=== PATIENT | male | born 1930 | race Caucasian/White ===

== ENCOUNTER → 2016-08-18 12:59 | Outpatient (CLI) | payer MEDICARE, BC ==
[2010-06-09 10:18] VITALS: BMI 25.0
== END | disposition home or self-care (01) ==
LOC: D.US 12:59
DX: I80.8 Phlebitis and thrombophlebitis of other sites (principal)

== ENCOUNTER → 2017-01-03 11:04 | Outpatient (CLI) | payer MEDICARE, BC ==
[2010-06-09 10:18] VITALS: BMI 25.0
== END | disposition home or self-care (01) ==
LOC: D.RAD 11:04
DX: M54.5 Low back pain (principal)

== ENCOUNTER 2017-10-21 09:41 | Inpatient (IN) | payer MEDICARE, BC ==
[~2017-10-21] VITALS: Ht 170.2 cm; Wt 71.8 kg
--- NOTE | ~2017-10-21 | HEMODYNAMI ---
PATIENT:AMITA MICHELE MEDICAL RECORD: [id number] : 32 LOCATION:[facility] D.2102 ADMISSION DATE: 10/22/17 Generatedon:10/24/201710:35 Patient name: AMITA MICHELE Patient #: [id number] SSN: : 1930 Date of study: 10/24/2017 Page: Of Hemodynamic Procedure Report Patient Data Patient Demographics Procedure consent was obtained First Name: AMITA Gender: Male Last Name: LENY : 1930 Patient #: [id number] Age: 87 year(s) Race: Additional ID: [id number] Contact details Address: [address] [place] [address] State: [place] City: [facility] Zip code: [address] Admission Admission Data Admission Date: 10/22/2017 Admission Time: 15:45 Room #: D.2102 Procedure Procedure Types Cath Procedure Diagnostic Procedure LHC LHC w/Coronaries Sedation Charges Moderate Sedation up to 15 minutes Peripheral Cath Diagnostic Procedure Cath Peripheral Four Vessel Arteriogram Procedure Description Procedure Date Procedure Date: 10/24/2017 Procedure Start Time: 10:08 Procedure End Time: 10:30 Procedure Staff Name Function Christoph Bronson MD Performing Physician Rosina Balderrama RT Monitor Sarbjit Garcia RN Nurse Kimi Bailon RT Scrub Procedure Data Cath Procedure Fluoroscopy Diagnostic fluoroscopy Total fluoroscopy Time: 2 time: 2 min min Diagnostic fluoroscopy Total fluoroscopy dose: 372 dose: 372 mGy mGy Contrast Material Contrast Material Type Amount (ml) Isovue 300 70 Entry Location Entry Primary Successful Side Size Upsize Upsize Entry Closure Succes sful Closure Location (Fr) 1 (Fr) 2 (Fr) Remarks Device Remarks Femoral Right 5 Fr Exoseal artery Estimated blood loss: 5 ml Diagnostic catheters Device Type Used For End Catheter Placement MULTIPACK JL 4.0 5Fr Left Coronary catheter Angiography MULTIPACK 3DRC 5Fr Right Coronary catheter Angiography MULTIPACK Pigtail 5 Fr LV Angiography catheter Procedure Complications No complications Procedure Medications Medication Administration Route Dosage Oxygen NC 2 l/min Zofran I.V. 4 mg Lidocaine 2% added to field 20 Heparin Flush Bag added to field 2 bags (1000units/500ml NS) 0.9% NaCl I.V. 100 ml/hr Versed I.V. 1 mg Fentanyl I.V. 25 mcg Hemodynamics Rest Heart Rate: 65 (bpm) Pressure Samples Time Site Value (mmHg) Purpose Heart Use Rate(bpm) 10:24 LV 143/-9,11 EDP 64 10:24 LV 140/-10,11 Snapshot 62 10:25 AO 125/69(93) Pullback 62 10:25 LV 110/11,18 Pullback 62 Gradients Valve Time Site 1 Site 2 Mean SEP/DFP Peak To Heart Use (mmHg) (sec/min) Peak Rate (mmHg) (bpm) Aortic 10:25 LV AO 0 62 110/11,18 125/69(93) Calculations Valve P-P Mean Valve Index Valve Source Name Gradient Area Flow (cm2) Aortic 0 0 Snapshots Pre Cath Intra NCS Post Cath Vital Signs Time Heart Resp SPO2 etCO2 NIBP (mmHg) Rhythm Pain Sedation Rate (ipm) (%) (mmHg) Status Level (bpm) 9:59:12 68 14 98 27.5 138/84(105) NSR 0 (11) 10(A) , No pain 10:03:28 68 15 98 23.8 129/93(108) NSR 0 (11) 10(A) , No pain 10:07:41 66 13 98 23 139/91(116) NSR 0 (11) 10(A) , No pain 10:11:54 65 14 96 24.2 117/70(86) NSR 0 (11) 10(A) , No pain 10:16:06 62 16 95 23.1 104/71(86) NSR 0 (11) 9(A) , No pain 10:20:29 63 14 93 24.5 113/75(89) NSR 0 (11) 9(A) , No pain 10:24:40 62 15 94 23.7 120/65(83) NSR 0 (11) 9(A) , No pain 10:28:52 64 14 94 24 114/71(84) NSR 0 (11) 10(A) , No pain Medications Time Medication Route Dose Verified Delivered Reason Notes Effe ctiveness by by 9:38:24 Oxygen NC 2 Christoph Buffie used for l/min Aiyana Garcia RN procedure MD 9:38:32 Zofran I.V. 4 mg Christoph Buffie Per Aiyana Garcia RN physician 9:38:43 Lidocaine 2% added 20ml Christoph Christoph for local to vial Aiyana Bronson MD anesthetic field 9:38:51 Heparin Flush added 2 Christoph Christoph used for Bag to bags Aiyana Bronson MD procedure (1000units/500ml field NS) 9:39:00 0.9% NaCl I.V. 100 Christoph Buffie Per ml/hr Aiyana Garcia RN physician 10:08:19 Versed I.V. 1 mg Christoph Buffie for Aiyana Garcia RN sedation 10:08:24 Fentanyl I.V. 25 Christoph Buffie for mcg Aiyana Garcia RN sedation Procedure Log Time Note 9:25:03 Rosina Balderrama RT(R) sent for patient. Start room use. 9:36:09 Informed consent obtained and on chart 9:36:13 Diagnostic Cath Status : Elective 9:37:09 Time tracking: Regular hours (M-F 7:00 - 5:00) 9:37:12 Plan of Care:Hemodynamics will remain stable., Cardiac rhythm will remain stable., Comfort level will be maintained., Respiratory function will remain adequate., Patient/ family verbilizes understanding of procedure., Procedure tolerated without complication., Recovers from procedure without complications.. 9:37:17 Patient received from Med II to CCL 2 Alert and oriented. Tansferred to table in Supine position. 9:37:18 Warm blankets applied, and criselda hugger turned on for patient comfort. 9:37:18 Correct patient and procedure confirmed by team. 9:37:19 ECG and BP/O2 sat monitors applied to patient. 9:37:20 Vital chart was started 9:37:21 Baseline sample Acquired. 9:37:24 Rhythm: sinus rhythm 9:37:25 Full Disclosure recording started 9:37:28 H&P Date Dictated: 10/24/2017 New H&P dictated by physician.. 9:37:30 Pre-procedure instructions explained to patient. 9:37:30 Pre-op teaching completed and patient verbalized understanding. 9:37:34 Family unavailable. 9:37:35 Patient NPO since Midnight. 9:37:37 Is the patient allergic to Iodine/contrast media? Yes. 9:37:38 Was the patient premedicated? Yes 9:37:39 Is patient on blood thinner?Yes 9:37:41 ACC The patient was administered the following blood thiners within the last 24 hours: ACCPlavix 9:38:24 Oxygen 2 l/min NC was administered by Sarbjit Garcia RN; used for procedure; 9:38:32 Zofran 4 mg I.V. was administered by Sarbjit Garcia RN; Per physician; 9:38:43 Lidocaine 2% 20ml vial added to field was administered by Christoph Bronson MD; for local anesthetic; 9:38:51 Heparin Flush Bag (1000units/500ml NS) 2 bags added to field was administered by Christpoh Bronson MD; used for procedure; 9:39:00 0.9% NaCl 100 ml/hr I.V. was administered by Sarbjit Garcia RN; Per physician; 9:40:00 Patient diabetic? No. 9:40:06 Previous problem with sedation/anesthesia? Yes nausea 9:40:08 Snore? Yes 9:40:09 Sleep apnea? No 9:40:10 Deviated septum? No 9:40:12 Opens mouth fully? Yes 9:40:13 Sticks out tongue? Yes 9:40:14 Airway obstruction? No ? 9:40:17 Dentures? No ? 9:40:21 Pre procedure: right dorsailis pedis pulse 1+ Palpable, but thready & weak; easily obliterated 9:40:23 Pre procedure: left dorsailis pedis pulse 1+ Palpable, but thready & weak; easily obliterated 9:40:26 Patient pain scale 0/10 ?. 9:41:23 IV patent on arrival in left forearm with 0.9% NaCl at [facility]. 9:41:29 Lab results completed and on chart. 9:41:33 Right groin area was prepped with chlora-prep and draped in sterile fashion 9:41:34 Alarms reviewed by RYana N. 9:41:35 Sharps counted by scrub and verified by R.N. 9:55:44 Zero performed for pressure channel P1 10:07:07 Physician arrived 10:07:07 --------ALL STOP TIME OUT------ 10:07:08 Final Timeout: patient, procedure, and site verified with staff and physician. All members of the team are in agreement. 10:07:17 Right groin site verified by team. 10:07:19 Physical assessment completed. ASA score P 2 - A patient with mild systemic disease as per Christoph Bronson MD. 10:07:23 Sedation plan: IV Moderate Sedation Medication:Versed, Fentanyl 10:07:30 Use device set Femoral Dx 10:07:31 ACIST Syringe (15071) opened to sterile field. 10:07:31 Bag Decanter (2002S) opened to sterile field. 10:07:32 Medline Cath Pack ([id number]) opened to sterile field. 10:07:33 DIAGNOSTIC WIRE .035 260cm J wire (222161) opened to sterile field. 10:07:34 ACIST Hand Control (66183) opened to sterile field. 10:07:34 ACIST Manifold (30664) opened to sterile field. 10:07:35 DIAGNOSTIC Multipack 5Fr catheter set ([id number]) opened to sterile field. 10:07:35 Tegaderm 4 x 4 (1626W) opened to sterile field. 10:07:37 MICROPUNCTURE 4FR Cook ([id number]) opened to sterile field. 10:07:39 SHEATH Prelude 5Fr 0.035 (HDE-5R-23-035) opened to sterile field. 10:08:19 Versed 1 mg I.V. was administered by Sarbjit Garcia RN; for sedation; 10:08:24 Fentanyl 25 mcg I.V. was administered by Sarbjit Garcia RN; for sedation; 10:08:45 Procedure started. 10:08:49 Local anesthetic to right femoral artery with Lidocaine 2% by Christoph Bronson MD.INITIAL ACCESS ONLY 10:08:50 Access obtained with 4Fr micropunture. 10:09:34 A 5 Fr sheath was inserted into the Right Femoral artery 10:10:40 A MULTIPACK JL 4.0 5Fr catheter was advanced over the wire and used for Left Coronary Angiography. 10:12:32 LCA angiography performed. 10:12:37 Injector settings: Ml/sec: 3, Volume: 6, 10:13:31 Catheter removed. 10:13:38 A MULTIPACK 3DRC 5Fr catheter was advanced over the wire and used for Right Coronary Angiography. 10:14:45 RCA angiography performed. 10:14:48 Injector settings: Ml/sec: 3, Volume: 6, 10:15:17 Bilateral carotid angiography performed. 10:17:29 Bilateral subclavian angiography performed 10:23:33 Catheter removed. 10:24:05 A MULTIPACK Pigtail 5 Fr catheter was advanced over the wire and used for LV Angiography. 10:24:48 LV hemodynamics recorded. 10:24:50 LV gram done using BRAXTON 10:24:53 Injector settings: Ml/sec: 5, Volume: 15, 10:25:28 EF : 60 % 10:26:07 Catheter removed. 10:28:54 EXOSEAL 5Fr (EX500) opened to sterile field. 10:29:03 Sheath removed intact; hemostasis achieved with Exoseal to the Right Femoral artery. 10:29:04 Procedure ended.(Physican Out) 10:29:15 Fluoroscopy time 02.00 minutes. 10:29:19 Fluoroscopy dose: 372 mGy 10:29:19 Flurop Dose total: 372 10:29:34 Contrast amount:Isovue 300 70ml. 10:29:36 Sharps counted by scrub and verified by R.N. 10:29:37 Insertion/operative site no bleeding no hematoma. 10:29:40 Post-op/insertion site Right Femoral artery dressed using a 4 x 4 and Tegaderm. 10:29:43 Post right femoral artery:stable 10:29:44 Post Procedure Pulses reassessed and unchanged 10:29:47 Post procedure rhythm: unchanged. 10:29:50 Estimated blood loss: 5 ml 10:29:52 Post procedure instruction explained to patient.Patient verbalizes understanding. 10:29:52 Patient needs reinforcement of post procedure teaching. 10:30:09 Procedure type changed to Cath procedure, Diagnostic procedure, LHC, LHC w/Coronaries, Sedation Charges, Moderate Sedation up to 15 minutes, Peripheral Cath Diagnostic Procedure, Cath Peripheral, Four Vessel Arteriogram 10:30:10 Procedure and supply charges have been captured, reviewed, submitted and are correct. 10:30:16 Procedure Complication : No complications 10:30:18 Vital chart was stopped 10:30:23 See physician's report for complete and final results. 10:30:33 Report given to [facility] II. 10:30:36 Patient transfered to [facility] with Stretcher. 10:30:38 Procedure ended. 10:30:38 Full Disclosure recording stopped 10:30:44 End room use (Document Last) Device Usage Item Name Manufacture Quantity Catalog Number Hospital Part Current M inimal Lot# / Charge Number Stock Stock Serial# Code ACIST Syringe Acist 1 24222 850168 908137 [id number] 2 0 (71401) [employer] Bag Decanter Microtek 1 2001S 435554 33829 185004 5 (2001S) Medical Inc. Medline Cath Cardinal 1 [id number] 408933 29251 404320 5 Pack Health ([id number]) DIAGNOSTIC WIRE [facility] Theodore 1 839244 865841 340083 148882 3 0 .035 260cm J wire (890037) ACIST Hand Acist 1 92588 057898 463324 898942 5 Control (97452) [employer] ACIST Manifold Acist 1 39825 497597 664382 797166 5 (37763) [employer] DIAGNOSTIC Cardinal 1 [id number] 913562 71270 387866 3 0 Multipack 5Fr Health catheter set ([id number]) Tegaderm 4 x 4 3M 1 1626W 883360 555690 985633 5 (1626W) MICROPUNCTURE Cook Medical 1 R35025 072382 964329 443964 5 4FR Cook ([id number]) SHEATH Prelude Merit 1 FND-2F-10-035 098465 312603 073551 5 5Fr 0.035 Medical (GOS-1N-25-035) MULTIPACK JL Cardinal 1 [id number] 5 4.0 5Fr Health catheter MULTIPACK 3DRC Cardinal 1 [id number] 5 5Fr catheter Health MULTIPACK Cardinal 1 [id number] 5 Pigtail 5 Fr Health catheter EXOSEAL 5Fr Cardinal 1 EX500 996983 929147 696086 1 0 (EX500) Health Signature Audit [place] Stage Time Signature Unsigned Intra-Procedure 10/24/2017 Rosina Balderrama 10:35:10 AM RT(R) Signatures Monitor : Rosina Balderrama RT Signature : Date : Time : [address] [address]
--- NOTE | ~2017-10-21 | HEMODYNAMI ---
PATIENT:AMITA MICHELE MEDICAL RECORD: [id number] : 32 LOCATION:[facility] D.2102 ADMISSION DATE: 10/22/17 Generatedon:10/25/20179:49 Patient name: AMITA MICHELE Patient #: [id number] SSN: : 1930 Date of study: 10/25/2017 Page: Of Hemodynamic Procedure Report Patient Data Patient Demographics First Name: AMITA Gender: Male Last Name: LENY : 1930 Patient #: [id number] Age: 87 year(s) Race: Additional ID: [id number] Contact details Address: [address] [place] [address] State: [place] City: [facility] Zip code: [address] Past Medical History Allergies Allergen Reaction Date Comments Reported Other allergy 10/25/2017 shellfish Admission Admission Data Admission Date: 10/22/2017 Admission Time: 15:45 Room #: 2102 Procedure Procedure Types Cath Procedure Diagnostic Procedure Sedation Charges Moderate Sedation up to 15 minutes Moderate Sedation up to 30 minutes PCI Procedure Coronary Stent Coronary Stent Initial Procedure Description Procedure Date Procedure Date: 10/25/2017 Procedure Start Time: 9:09 Procedure End Time: 9:46 Procedure Staff Name Function Christoph Deleon MD Performing Physician Rosina Balderrama RT Monitor Sarbjit Garcia RN Nurse Kimi Bailon RT Scrub Procedure Data Cath Procedure Fluoroscopy Diagnostic fluoroscopy Total fluoroscopy Time: time: 10.8 min 10.8 min Diagnostic fluoroscopy Total fluoroscopy dose: dose: 1617 mGy 1617 mGy Contrast Material Contrast Material Type Amount (ml) Isovue 300 115 Entry Location Entry Primary Successful Side Size Upsize Upsize Entry Closure Carrillo ccessful Closure Location (Fr) 1 (Fr) 2 (Fr) Remarks Device Remarks Radial Right 6 Fr Mechanical TR Band artery Short Compression Estimated blood loss: 10 ml Procedure Complications No complications Procedure Medications Medication Administration Route Dosage Oxygen NC 2 l/min Plavix P.O. 300 mg Pepcid I.V. 20 mg Benadryl I.V. 50 mg Solumedrol I.V. 125 mg Radial Cocktail I.A. 1 syringe (Verapomil 2mg/Nitro 400mcg/Heparin 1500units) Lidocaine 2% added to field 20 Heparin Flush Bag added to field 2 bags (1000units/500ml NS) 0.9% NaCl I.V. 100 ml/hr Versed I.V. 1 mg Fentanyl I.V. 25 mcg Heparin Bolus I.V. 5000 units Versed I.V. 1 mg Fentanyl I.V. 25 mcg Nitroglycerin IC/IA I.C. 300 mcg Nitroglycerin IC/IA I.C. 300 mcg Heparin Bolus I.V. 2000 units Hemodynamics Rest Pre Cath Intra NCS Post Cath Vital Signs Time Heart Resp SPO2 etCO2 NIBP (mmHg) Rhythm Pain Sedation Rate (ipm) (%) (mmHg) Status Level (bpm) 9:07:35 71 12 99 0 126/85(99) NSR 0 (11) 10(A) , No pain 9:13:09 71 14 97 27 129/79(101) NSR 0 (11) 10(A) , No pain 9:17:17 75 16 96 26.8 123/79(99) NSR 0 (11) 9(A) , No pain 9:21:23 70 13 96 24.7 120/79(96) NSR 0 (11) 9(A) , No pain 9:25:26 73 14 97 26.1 133/80(98) NSR 0 (11) 9(A) , No pain 9:29:34 73 12 98 26.8 134/84(102) NSR 0 (11) 9(A) , No pain 9:33:44 72 14 96 24.5 126/75(92) NSR 0 (11) 9(A) , No pain 9:37:52 67 14 95 23.4 108/76(89) NSR 0 (11) 9(A) , No pain 9:41:52 69 15 97 0 123/78(91) NSR 0 (11) 9(A) , No pain 9:45:57 69 16 98 25.8 133/82(99) NSR 0 (11) 10(A) , No pain Medications Time Medication Route Dose Verified Delivered Reason Notes Effectiveness by by 8:55:35 Oxygen NC 2 l/min Christoph Buffie used for Norred Garcia community leader 8:57:42 Plavix P.O. 300 mg Christoph Buffie used for Aiyana Garcia community leader 9:02:17 Pepcid I.V. 20 mg Christoph Buffie used for Aiyana Garcia community leader 9:04:03 Benadryl I.V. 50 mg Christoph Buffie used for Aiyana Garcia community leader 9:05:45 Solumedrol I.V. 125 mg Christoph Buffie used for Aiyana Garcia community leader 9:09:12 Lidocaine 2% added 20ml Christoph Christoph for local to vial Aiyana Deleon MD anesthetic field 9:09:27 Heparin Flush added 2 bags Christoph Christoph used for Bag to Aiyana Deleon MD procedure (1000units/500ml field NS) 9:09:41 0.9% NaCl I.V. 100 Christoph Buffie Per physician ml/hr Aiyana Garcia RN, MD 9:09:48 Versed I.V. 1 mg Christoph Buffie for sedation Aiyana Garcia RN, MD 9:09:57 Fentanyl I.V. 25 mcg Christoph Buffie for sedation Aiyana Garcia RN, MD 9:13:22 Radial Cocktail I.A. 1 Christoph Christoph for (Verapomil syringe Aiyana Deleon MD vasodilation 2mg/Nitro 400mcg/Heparin 1500units) 9:15:42 Heparin Bolus I.V. 5000 Christoph Buffie for verif ied units Aiyana Garcia RN anticoagulation with dr MD deleon 9:29:17 Versed I.V. 1 mg Christoph Buffie for sedation Aiyana Garcia RN, MD 9:29:21 Fentanyl I.V. 25 mcg Christoph Buffie for sedation Aiyana Garcia RN, MD 9:31:27 Nitroglycerin I.C. 300 mcg Christoph Buffie for IC/IA Aiyana Garcia RN vasodilation 9:33:47 Nitroglycerin I.C. 300 mcg Christoph Buffie for IC/IA Aiyana Garcia RN vasodilation 9:37:08 Heparin Bolus I.V. 2000 Christoph Buffie for verif ied units Aiyana Garcia RN anticoagulation with dr MD deleon Procedure Log Time Note 8:42:29 Diagnostic Cath status Elective 8:42:31 Rosina Balderrama RT(R) sent for patient. Start room use. 8:42:33 Time tracking: Regular hours (M-F 7:00 - 5:00) 8:42:46 Plan of Care:Hemodynamics will remain stable., Cardiac rhythm will remain stable., Comfort level will be maintained., Respiratory function will remain adequate., Patient/ family verbilizes understanding of procedure., Procedure tolerated without complication., Recovers from procedure without complications.. 8:42:52 Patient received from Med II to CCL 2 Alert and oriented. Tansferred to table in Supine position. 8:43:02 H&P Date Dictated: 10/24/2017 Within 30 days and on chart.. 8:43:04 Pre-procedure instructions explained to patient. 8:43:11 Family in patients room. 8:43:14 Patient NPO since Midnight. 8:43:35 Patient allergic to Other allergyshellfish 8:43:38 Is the patient allergic to Iodine/contrast media? No. 8:43:40 Was the patient premedicated? Yes 8:55:35 Oxygen 2 l/min NC was administered by Sarbjit Garcia RN; used for procedure; 8:57:42 Plavix 300 mg P.O. was administered by Sarbjit Garcia RN; used for procedure; 9:02:17 Pepcid 20 mg I.V. was administered by Sarbjit Garcia RN; used for procedure; 9:04:03 Benadryl 50 mg I.V. was administered by Sarbjit Garcia RN; used for procedure; 9:05:45 Solumedrol 125 mg I.V. was administered by Sarbjit Garcia RN; used for procedure; 9:08:09 Is patient on blood thinner?Yes 9:08:12 ACC The patient was administered the following blood thiners within the last 24 hours: ACCPlavix 9:08:17 Patient diabetic? No. 9:08:26 Previous problem with sedation/anesthesia? Yes Nausea 9:08:28 Snore? Yes 9:08:33 Sleep apnea? No 9:08:37 Dentures? No ? 9:08:56 IV patent on arrival in right hand with 0.9% NaCl at KVO. 9:09:06 IV started by Sarbjit Garcia RN inleft forearm with a 22 gauge IV catheter with 0.9% NaCl at KVO. 9:09:11 Lab results completed and on chart. 9:09:12 Lidocaine 2% 20ml vial added to field was administered by Christoph Deleon MD; for local anesthetic; 9:09:15 Right Radial & Right Groin area was prepped with chlora-prep and draped in sterile fashion 9:09:16 Alarms reviewed by R. N. 9:09:16 Sharps counted by scrub and verified by R.N. 9::17 Physician paged 9::18 Physician arrived 9::18 --------ALL STOP TIME OUT------ 9::19 Final Timeout: patient, procedure, and site verified with staff and physician. All members of the team are in agreement. 9::26 Right Radial & Right Groin site verified by team. 9::27 Heparin Flush Bag (1000units/500ml NS) 2 bags added to field was administered by Christoph Deleon MD; used for procedure; 9::30 Physical assessment completed. ASA score P 2 - A patient with mild systemic disease as per Christoph Deleon MD. 9:09:34 Sedation plan: IV Moderate Sedation Medication:Versed, Fentanyl 9:09:41 0.9% NaCl 100 ml/hr I.V. was administered by Sarbjit Garcia RN; Per physician; 9::48 Versed 1 mg I.V. was administered by Sarbjit Garcia RN; for sedation; 9::48 Procedure started. 9:09:48 Full Disclosure recording started 9:09:57 Fentanyl 25 mcg I.V. was administered by Sarbjit Garcia RN; for sedation; 9:09:59 Local anesthetic to right radial artery with Lidocaine 2% by Christoph Deleon MD.INITIAL ACCESS ONLY 9:10:04 Use device set Femoral Dx 9:10:05 ACIST Syringe (11622) opened to sterile field. 9:10:06 Bag Decanter () opened to sterile field. 9:10:07 Medline Cath Pack ([id number]) opened to sterile field. 9:10:09 DIAGNOSTIC WIRE .035 260cm J wire (722371) opened to sterile field. 9:10:10 ACIST Hand Control (08733) opened to sterile field. 9:10:11 ACIST Manifold (58409) opened to sterile field. 9:10:28 SHEATH 6Fr Prelude Radial ([id number]) opened to sterile field. 9:10:37 Vital chart was started 9:11:50 INFLATOR Merit BasixCompak (LR1727) opened to sterile field. 9:12:53 A 6 Fr Short sheath was inserted into the Right Radial artery 9:13:22 Radial Cocktail (Verapomil 2mg/Nitro 400mcg/Heparin 1500units) 1 syringe I.A. was administered by Christoph Dleeon MD; for vasodilation; 9:13:22 Zero performed for pressure channel P1 9:14:26 GUIDE 6FR EBU 3.5 catheter ([id number]) opened to sterile field. 9:14:39 COPILOT Valve Control (6162870) opened to sterile field. 9:15:02 6 Fr EBU 3.5 guide catheter was inserted over the wire 9:15:42 Heparin Bolus 5000 units I.V. was administered by Sarbjit Garcia RN; for anticoagulation; verified with dr deleon 9:16:34 BMW 190cm [place] 2 J wire ([id number]) opened to sterile field. 9:16:41 BMW wire advanced. 9:27:08 WHISPER 190cm wire ([id number]) opened to sterile field. 9:27:09 Whisper wire advanced. 9:27:29 unable to cross lesion with the BMW Double wired with Whisper. WHisper removed BMW left down LAD 9:29:17 Versed 1 mg I.V. was administered by Sarbjit Garcia RN; for sedation; 9:29:21 Fentanyl 25 mcg I.V. was administered by Sarbjit Garcia RN; for sedation; 9:31:27 Nitroglycerin IC/IA 300 mcg I.C. was administered by Sarbjit Garcia RN; for vasodilation; 9:33:47 Nitroglycerin IC/IA 300 mcg I.C. was administered by Sarbjit Garcia RN; for vasodilation; 9:35:45 Wire advanced across lesion. 9:36:57 Place stent Inflation Number: 1 A JEAN-PIERRE RX 2.0 x 26 stent ([id number]) was prepped and advanced across the Mid LAD. The stent was deployed at 12 DEVANTE for 0:14 (min:sec). 9:37:08 Heparin Bolus 2000 units I.V. was administered by Buffie Garcia RN; for anticoagulation; verified with dr deleon 9:37:16 Stent catheter was removed intact over wire. 9:41:14 Place stent Inflation Number: 1 A JEAN-PIERRE RX 2.0 x 30 stent ([id number]) was prepped and advanced across the Prox LAD. The stent was deployed at 15 DEVANTE for 0:15 (min:sec). 9:43:14 TR BAND Standard ([id number]) opened to sterile field. 9:43:32 Stent catheter was removed intact over wire. 9:43:33 Wire removed. 9:43:34 Guide catheter removed. 9:44:05 Sheath removed intact; hemostasis achieved with Mechanical Compression to the Right Radial artery. 9:44:07 Procedure ended.(Physican Out) 9:44:21 Fluoroscopy time 10.80 minutes. 9:44:26 Fluoroscopy dose: 1617 mGy 9:44:26 Flurop Dose total: 1617 9:44:31 Contrast amount:Isovue 300 115ml. 9:44:32 Sharps counted by scrub and verified by R.N. 9:44:36 TR band inflated with 10cc of air. 9:44:38 Insertion/operative site no bleeding no hematoma. 9:44:44 Post left radial artery:stable 9:44:47 Post Procedure Pulses reassessed and unchanged 9:44:53 Post-procedure physical assessment completed. ASA score P 2 - A patient with mild systemic disease as per Christoph Deleon MD. 9:44:56 Post procedure rhythm: unchanged. 9:45:00 Estimated blood loss: 10 ml 9:45:03 Post procedure instruction explained to patient.Patient verbalizes understanding. 9:45:33 Procedure type changed to Cath procedure, Diagnostic procedure, Sedation Charges, Moderate Sedation up to 15 minutes, Moderate Sedation up to 30 minutes, PCI procedure, Coronary Stent, Coronary Stent Initial 9:45:35 Procedure and supply charges have been captured, reviewed, submitted and are correct. 9:46:11 Procedure Complication : No complications 9:46:14 Vital chart was stopped 9:46:14 See physician's report for complete and final results. 9:46:18 Report given to Med II. 9:46:21 Patient transfered to Med II with Bed. 9:46:24 Procedure ended. 9:46:24 Full Disclosure recording stopped 9:46:27 End room use (Document Last) Intervention Summary Intervention Notes Time ActionType Lesion and Equipment Used Action# Pressure Duration Attributes 9:36:57 Place stent Mid LAD JEAN-PIERRE RX 2.0 x 1 12 00:14 26 stent ([id number]) 9:41:14 Place stent Prox LAD JEAN-PIERRE RX 2.0 x 1 15 00:15 30 stent ([id number]) Device Usage Item Name Manufacture Quantity Catalog Number Hospital Part Current M inimal Lot# / Charge Number Stock Stock Serial# Code ACIST Syringe Acist 1 06851 677792 013157 248301 2 0 (80575) Medical Systems Inc Bag Decanter Microtek 1 2001S 610354 98035 044391 5 (2001S) Medical Inc. Medline Cath Cardinal 1 [id number] 753880 43899 328390 5 [facility] ([id number]) DIAGNOSTIC WIRE St Theodore 1 171472 625276 705655 462029 3 0 .035 260cm J wire (894059) ACIST Hand Acist 1 95490 395160 213037 591029 5 Control (68784) Medical Systems Inc ACIST Manifold Acist 1 54600 240793 460494 450239 5 (28163) Medical Systems Inc SHEATH 6Fr Merit 1 [id number] 712285 096656 277707 5 Prelude Radial Medical ([id number]) INFLATOR Merit Merit 1 [id number] 502292 673462 174[address] Jerry's Smooth [facility] CenterNetHooks (UW6487) GUIDE 6FR EBU Medtronic 1 [id number] 285382 54743 401050 3 3.5 catheter ([id number]) COPILOT Valve Key 1 [id number] 453409 564267 469265 5 Control Vascular (6519123) BMW 190cm Key 1 [id number] 027188 98539 143835 5 [place] 2 J Vascular wire ([id number]) WHISPER 190cm Key 1 [id number] 183979 211278 092233 5 wire Vascular ([id number]) JEAN-PIERRE RX 2.0 x Medtronic 1 [id number] 082078 534085 021863 5 [id number] 26 stent ([id number]) JEAN-PIERRE RX 2.0 x Medtronic 1 [id number] 339580 147948 177273 5 [id number] 30 stent ([id number]) TR BAND Terumo 1 [id number] 656844 948777 107878 4 0 Standard ([id number]) Signature Audit Terry Stage Time Signature Unsigned Intra-Procedure 10/25/2017 Kimi Bailon 9:48:54 AM RT(R) Signatures Monitor : Rosina Balderrama RT Signature : Date : Time : [place] [id number] [place] [address]
--- NOTE | ~2017-10-21 | EC ---
PATIENT:AMITA MICHELE DATE OF SERVICE: 10/22/17 SEX: M MEDICAL RECORD: [id number] DATE OF : [birth year] LOCATION:D.M2 D.210 AGE OF PATIENT: 87 ADMISSION DATE: 10/22/17 REFERRING PHYSICIAN: INTERPRETING PHYSICIAN: PATRICIO NJ MD ECHOCARDIOGRAM REPORT ECHO CHARGES 4 ECHO COMPLETE Date: 10/22 CLINICAL DIAGNOSIS: CHF ECHOCARDIOGRAPHIC MEASUREMENTS (adult normal given) AC root (d.<3.7cm) 3.6 cm LV Septum d (<1.2 cm> 1.6 cm Valve Excursion 1.4 cm LV Septum (systole) 1.7 cm Left Atria (s.<4.0cm> 3.3 cm LVPW d(<1.2cm) 1.3 cm RV (d.<2.3cm) 2.9 cm LVPW (sytole) 1.5 cm LV diastole(<5.6CM) 3.7 cm MV E-F(>70mm/sec) cm LV systole 2.5 cm LVOT Diameter 1.5 cm MV exc.(>10mm) 1.4 cm Est.ejection fraction (50-75%) % DOPPLER: LVIT cm/sec A 87.0 cm/sec E 70.0 cm/sec LA cm/sec RVSP 21 mmHg LVOT 113 cm/sec AOP1/2T m/s Asc. Ao 133 cm/sec RVOT cm/sec RA cm/sec PA cm/sec AV Gradient Peak 7.04 mmHg AV Mean 4.35 mmHg AV Area 1.6 cm MV Gradient Peak 3.68 mmHg MV Mean 1.41 mmHg MV Area cm COMMENTS: Spoon Maker: 2 SAMIRA SHELTON Medical Administrator: 4 Dr. Nj TAPE# PACS Pericardial Effusion N DATE OF SERVICE: PROCEDURE: Transthoracic echocardiogram. FINDINGS: 1. The left ventricle shows left ventricular hypertrophy. Ejection fraction is 55% to 60%. The inflow characteristics are consistent with diastolic dysfunction. 2. The left atrium has normal size, shape, structure, and function. 3. Mitral valve is grossly normal. ECHOCARDIOGRAM REPORT [id number] AMITA MICHELE 4. The aortic valve is grossly normal. 5. The tricuspid valve has normal size, shape, structure, and function. 6. The pericardium is normal. 7. The right ventricle is mildly dilated with normal function. RVSP is normal. 8. The right atrium is mildly dilated. 9. Pulmonic valve is normal. CONCLUSIONS: The patient has evidence of hypertensive heart disease, otherwise normal echocardiogram for stated age. TRANSINT:[id number] Voice Confirmation ID: [id number] DOCUMENT ID: [id number] PATRICIO NJ MD at 1029 CC: [id number] DICTATION DATE: 10/26/1747 PRINTER'S ASSISTANT: 10/26/17 0927 DIS IN 10/26/17 [facility] [address] [place] [address]
[2017-10-21 10:36] LABS: BASOPHILS 0.2 % (0-2); EOSINOPHILS 1.1 % (0-7); HEMATOCRIT 48.4 % (42.0-54.0); HEMOGLOBIN 16.8 g/dL (13.5-17.5); IMMATURE GRANULOCYTES 0.3 % (0-5); LYMPHOCYTES 28.2 % (15-50); MCH 33.3 pg (26.0-34.0); MCHC 34.7 g/dL (31.0-37.0); MEAN PLATELET VOLUME 9.9 fL (7.4-10.4); MONOCYTES 6.1 % (2-11); NEUTROPHILS 64.1 % (40-80); RBC 5.04 10x6/uL (4.20-6.10); RDW 12.6 % (11.5-14.5); WBC 9.3 10x3/uL (4.8-10.8)
[2017-10-21 10:51] LABS: ALBUMIN 3.8 g/dL (3.4-5.0); ALKALINE PHOSPHATASE 63 U/L (46-116); ALT (SGPT) 23 U/L (10-68); BILIRUBIN - TOTAL 0.62 mg/dL (0.2-1.3); CALC OSMOLALITY 288 mosm/kg (275-300); CARBON DIOXIDE 30.5 mmol/L (21.0-32.0); CHLORIDE - SERUM 107 mmol/L (98-107); CREATININE - SERUM 1.2 mg/dL (0.6-1.3); GLUCOSE 150 mg/dL (74-106); POTASSIUM - SERUM 4.9 mmol/L (3.5-5.1); PROTEIN - SERUM 7.6 g/dL (6.4-8.2); SODIUM 141 mmol/L (136-145); UREA NITROGEN 26 mg/dL (7-18); eGFR NON AFRICAN AMERICAN 61 mL/min (90-120)
[2017-10-21 10:55] LABS: PLATELET COUNT 162 10x3/uL (130-400)
[2017-10-21 11:16] LABS: CREATINE KINASE 51 UL (21-232)
[2017-10-21 11:18] LABS: TROPONIN-I < 0.017 ng/mL (0.000-0.060)
[2017-10-21 14:31] LABS: CKMB 1.2 U/L (0.0-3.6); CREATINE KINASE 54 UL (21-232); TROPONIN-I < 0.017 ng/mL (0.000-0.060)
[2017-10-21] MEDS ORDERED: ALEVE220 MG PO (16:27)
[2017-10-21] MEDS ORDERED: VITAMIN D31000 UNIT PO (16:28)
[2017-10-21] MEDS ORDERED: ASCORBIC ACID500 MG PO (16:28)
[2017-10-21 17:29] VITALS: BP 167/71
[2017-10-21 17:58] VITALS: BP 162/71; BMI 25.1
[2017-10-21 20:46] VITALS: BP 153/75
[2017-10-21 20:59] LABS: CKMB 0.7 U/L (0.0-3.6); CREATINE KINASE 47 UL (21-232)
[2017-10-21 21:01] LABS: TROPONIN-I < 0.017 ng/mL (0.000-0.060)
[2017-10-21 21:39] VITALS: BP 104/65; BMI 23.6
[2017-10-22 01:06] VITALS: BP 106/63
[2017-10-22 02:24] LABS: BASOPHILS 0.1 % (0-2); EOSINOPHILS 2.2 % (0-7); HEMATOCRIT 44.5 % (42.0-54.0); HEMOGLOBIN 15.4 g/dL (13.5-17.5); IMMATURE GRANULOCYTES 0.1 % (0-5); MCHC 34.6 g/dL (31.0-37.0); MCV 95.5 fL (80.0-100.0); MEAN PLATELET VOLUME 9.5 fL (7.4-10.4); MONOCYTES 11.7 % (2-11); NEUTROPHILS 48.9 % (40-80); PLATELET COUNT 159 10x3/uL (130-400); RBC 4.66 10x6/uL (4.20-6.10); RDW 12.6 % (11.5-14.5); WBC 9.2 10x3/uL (4.8-10.8)
[2017-10-22 02:52] LABS: CALC OSMOLALITY 281 mosm/kg (275-300); CALCIUM 8.4 mg/dL (8.5-10.1); CARBON DIOXIDE 29.9 mmol/L (21.0-32.0); CHLORIDE - SERUM 104 mmol/L (98-107); CKMB 0.8 U/L (0.0-3.6); CREATINE KINASE 43 UL (21-232); CREATININE - SERUM 1.3 mg/dL (0.6-1.3); GLUCOSE 104 mg/dL (74-106); SODIUM 140 mmol/L (136-145); UREA NITROGEN 21 mg/dL (7-18); eGFR NON AFRICAN AMERICAN 55 mL/min (90-120)
[2017-10-22 03:01] LABS: TROPONIN-I < 0.017 ng/mL (0.000-0.060)
[2017-10-22 06:10] VITALS: BP 148/77
[2017-10-22 09:12] VITALS: BP 116/70
[2017-10-22 12:37] VITALS: BP 109/56
[2017-10-22 17:32] VITALS: BP 150/68
[2017-10-22 20:00] VITALS: BP 125/71
[2017-10-23] VITALS: BP 122/70
[2017-10-23 04:00] VITALS: BP 111/64
[2017-10-23 08:11] VITALS: BP 106/63
[2017-10-23 11:30] VITALS: Ht 170.2 cm; Wt 71.8 kg
[2017-10-23 11:31] LABS: BASOPHILS 0.1 % (0-2); HEMATOCRIT 45.9 % (42.0-54.0); HEMOGLOBIN 15.7 g/dL (13.5-17.5); IMMATURE GRANULOCYTES 0.1 % (0-5); MCH 32.8 pg (26.0-34.0); MCHC 34.2 g/dL (31.0-37.0); MCV 95.8 fL (80.0-100.0); MEAN PLATELET VOLUME 9.9 fL (7.4-10.4); MONOCYTES 9.4 % (2-11); NEUTROPHILS 52.4 % (40-80); PLATELET COUNT 164 10x3/uL (130-400); RBC 4.79 10x6/uL (4.20-6.10); RDW 12.5 % (11.5-14.5); WBC 7.4 10x3/uL (4.8-10.8)
[2017-10-23 11:46] LABS: ALBUMIN 3.3 g/dL (3.4-5.0); ANION GAP 8.8 mmol/L (8-16); BILIRUBIN - TOTAL 0.4 mg/dL (0.2-1.3); CALCIUM 8.4 mg/dL (8.5-10.1); CARBON DIOXIDE 29.5 mmol/L (21.0-32.0); CREATININE - SERUM 1.2 mg/dL (0.6-1.3); POTASSIUM - SERUM 4.3 mmol/L (3.5-5.1); PROTEIN - SERUM 6.7 g/dL (6.4-8.2)
[2017-10-23 12:24] VITALS: BP 106/60
[2017-10-23 15:31] VITALS: BP 134/66
[2017-10-23 17:17] LABS: APPEARANCE CLEAR (CLEAR); BILIRUBIN NEGATIVE (NEGATIVE); COLOR YELLOW (YELLOW); GLUCOSE NEGATIVE (NEGATIVE); KETONE NEGATIVE (NEGATIVE); NITRITE NEGATIVE (NEGATIVE); PROTEIN NEGATIVE (NEGATIVE); UROBILINOGEN NORMAL (NORMAL)
[2017-10-23 19:42] LABS: BASOPHILS 0.3 % (0-2); HEMATOCRIT 44.8 % (42.0-54.0); HEMOGLOBIN 15.2 g/dL (13.5-17.5); IMMATURE GRANULOCYTES 0.3 % (0-5); LYMPHOCYTES 43.6 % (15-50); MCHC 33.9 g/dL (31.0-37.0); MCV 97.2 fL (80.0-100.0); MEAN PLATELET VOLUME 10.2 fL (7.4-10.4); MONOCYTES 10.1 % (2-11); NEUTROPHILS 41.7 % (40-80); PLATELET COUNT 158 10x3/uL (130-400); RBC 4.61 10x6/uL (4.20-6.10); RDW 12.5 % (11.5-14.5); WBC 7.2 10x3/uL (4.8-10.8)
[2017-10-23 20:00] VITALS: BP 114/71
[2017-10-23 20:12] LABS: ANION GAP 13.5 mmol/L (8-16); CALCIUM 8.4 mg/dL (8.5-10.1); CARBON DIOXIDE 24.8 mmol/L (21.0-32.0); CREATININE - SERUM 1.3 mg/dL (0.6-1.3); POTASSIUM - SERUM 4.3 mmol/L (3.5-5.1)
[2017-10-24 06:12] LABS: BASOPHILS 0.3 % (0-2); EOSINOPHILS 3.7 % (0-7); HEMATOCRIT 43.9 % (42.0-54.0); HEMOGLOBIN 15.1 g/dL (13.5-17.5); IMMATURE GRANULOCYTES 0.3 % (0-5); MCH 32.9 pg (26.0-34.0); MCHC 34.4 g/dL (31.0-37.0); MCV 95.6 fL (80.0-100.0); MEAN PLATELET VOLUME 10.1 fL (7.4-10.4); NEUTROPHILS 47.7 % (40-80); PLATELET COUNT 157 10x3/uL (130-400); RBC 4.59 10x6/uL (4.20-6.10); RDW 12.5 % (11.5-14.5); WBC 7.7 10x3/uL (4.8-10.8)
[2017-10-24 06:22] VITALS: BP 134/82
[2017-10-24 06:40] LABS: ALBUMIN 3.1 g/dL (3.4-5.0); ANION GAP 11.9 mmol/L (8-16); BILIRUBIN - TOTAL 0.42 mg/dL (0.2-1.3); CALCIUM 8.3 mg/dL (8.5-10.1); CARBON DIOXIDE 30.4 mmol/L (21.0-32.0); CREATININE - SERUM 1.3 mg/dL (0.6-1.3); POTASSIUM - SERUM 4.3 mmol/L (3.5-5.1); PROTEIN - SERUM 6.3 g/dL (6.4-8.2)
[2017-10-24 08:24] VITALS: BP 134/87
[2017-10-24 15:47] VITALS: BP 87/55
[2017-10-24 16:17] LABS: BASOPHILS 0.1 % (0-2); EOSINOPHILS 0.1 % (0-7); HEMOGLOBIN 15.1 g/dL (13.5-17.5); IMMATURE GRANULOCYTES 0.3 % (0-5); LYMPHOCYTES 17.4 % (15-50); MCH 32.9 pg (26.0-34.0); MCHC 34.3 g/dL (31.0-37.0); MCV 95.9 fL (80.0-100.0); MEAN PLATELET VOLUME 10.1 fL (7.4-10.4); MONOCYTES 0.4 % (2-11); NEUTROPHILS 81.7 % (40-80); PLATELET COUNT 153 10x3/uL (130-400); RBC 4.59 10x6/uL (4.20-6.10); RDW 12.5 % (11.5-14.5); WBC 6.7 10x3/uL (4.8-10.8)
[2017-10-24 16:38] LABS: ANION GAP 15.4 mmol/L (8-16); CALCIUM 8.3 mg/dL (8.5-10.1); CARBON DIOXIDE 25.4 mmol/L (21.0-32.0); CREATININE - SERUM 1.5 mg/dL (0.6-1.3); POTASSIUM - SERUM 4.8 mmol/L (3.5-5.1)
[2017-10-24 20:00] VITALS: BP 105/59
[2017-10-25 04:00] VITALS: BP 94/61
[2017-10-25 06:21] LABS: BASOPHILS 0 % (0-2); EOSINOPHILS 0 % (0-7); HEMATOCRIT 41.3 % (42.0-54.0); IMMATURE GRANULOCYTES 0.3 % (0-5); LYMPHOCYTES 16.2 % (15-50); MCH 32.6 pg (26.0-34.0); MCHC 33.9 g/dL (31.0-37.0); MEAN PLATELET VOLUME 10.5 fL (7.4-10.4); MONOCYTES 7.4 % (2-11); NEUTROPHILS 76.1 % (40-80); PLATELET COUNT 183 10x3/uL (130-400); RDW 12.8 % (11.5-14.5)
[2017-10-25 06:33] LABS: WBC 14.5 10x3/uL (4.8-10.8)
[2017-10-25 06:47] LABS: ALBUMIN 2.9 g/dL (3.4-5.0); ANION GAP 14.5 mmol/L (8-16); BILIRUBIN - TOTAL 0.3 mg/dL (0.2-1.3); CALCIUM 8.6 mg/dL (8.5-10.1); CARBON DIOXIDE 25.1 mmol/L (21.0-32.0); CREATININE - SERUM 1.3 mg/dL (0.6-1.3); POTASSIUM - SERUM 4.6 mmol/L (3.5-5.1); PROTEIN - SERUM 6.1 g/dL (6.4-8.2)
[2017-10-25 08:40] VITALS: BP 93/63
[2017-10-25] MEDS ORDERED: PLAVIX75 MG PO (10:43)
[2017-10-25 12:48] VITALS: BP 108/72
[2017-10-25 16:15] VITALS: BP 97/53
[2017-10-25 20:04] VITALS: BP 94/61
[2017-10-26 00:37] VITALS: BP 106/70; BP 89/60
[2017-10-26 05:35] LABS: BASOPHILS 0.1 % (0-2); EOSINOPHILS 0.1 % (0-7); HEMATOCRIT 41.8 % (42.0-54.0); HEMOGLOBIN 14.3 g/dL (13.5-17.5); IMMATURE GRANULOCYTES 0.5 % (0-5); LYMPHOCYTES 16.7 % (15-50); MCH 32.9 pg (26.0-34.0); MCHC 34.2 g/dL (31.0-37.0); MCV 96.1 fL (80.0-100.0); MEAN PLATELET VOLUME 10.4 fL (7.4-10.4); MONOCYTES 7.5 % (2-11); NEUTROPHILS 75.1 % (40-80); PLATELET COUNT 174 10x3/uL (130-400); RBC 4.35 10x6/uL (4.20-6.10); RDW 12.7 % (11.5-14.5); WBC 17.7 10x3/uL (4.8-10.8)
[2017-10-26 05:58] LABS: ALBUMIN 3.1 g/dL (3.4-5.0); ANION GAP 12.9 mmol/L (8-16); BILIRUBIN - TOTAL 0.25 mg/dL (0.2-1.3); CALCIUM 8.7 mg/dL (8.5-10.1); CARBON DIOXIDE 27.6 mmol/L (21.0-32.0); CREATININE - SERUM 1.2 mg/dL (0.6-1.3); POTASSIUM - SERUM 4.5 mmol/L (3.5-5.1); PROTEIN - SERUM 6.3 g/dL (6.4-8.2)
[2017-10-26 06:21] VITALS: BP 101/55
[2017-10-26 08:50] VITALS: BP 119/76
[2017-10-26 12:03] VITALS: BP 117/75
== END 2017-10-26 14:25 | disposition home or self-care (01) | DRG 247 ==
LOC: D.ER 09:41 → D.EDHOLD 14:20 → OBSVTIME 14:20 → D.M2 14:20
PROVIDERS: Family Medicine; Internal Medicine Cardiovascular Disease; Internal Medicine Nephrology
PROC: B2111ZZ Fluoroscopy of Multiple Coronary Arteries using Low Osmolar Contrast (ICD-10-PCS; 2017-10-24)
PROC: B2151ZZ Fluoroscopy of Left Heart using Low Osmolar Contrast (ICD-10-PCS; 2017-10-24)
PROC: 4A023N7 Measurement of Cardiac Sampling and Pressure, Left Heart, Percutaneous Approach (ICD-10-PCS; 2017-10-24)
PROC: B3141ZZ Fluoroscopy of Left Common Carotid Artery using Low Osmolar Contrast (ICD-10-PCS; 2017-10-24)
PROC: B3121ZZ Fluoroscopy of Left Subclavian Artery using Low Osmolar Contrast (ICD-10-PCS; 2017-10-24)
PROC: 027035Z Dilation of Coronary Artery, One Artery with Two Drug-eluting Intraluminal Devices, Percutaneous Approach (ICD-10-PCS; principal; 2017-10-25 08:30)
DX: I25.10 Atherosclerotic heart disease of native coronary artery without angina pectoris (principal); N17.9 Acute kidney failure, unspecified; I95.9 Hypotension, unspecified; I77.89 Other specified disorders of arteries and arterioles; I16.0 Hypertensive urgency

== ENCOUNTER 2017-12-05 05:00 | Inpatient (IN) | payer MEDICARE, BC ==
[2017-12-04 11:09] LABS: APTT 37.7 SECONDS (22.8-39.4); INR 0.96 (0.85-1.17); PROTIME 12.3 SECONDS (11.6-15.0)
[2017-12-04 11:27] LABS: ALBUMIN 4.1 g/dL (3.4-5.0); ANION GAP 10.7 mmol/L (8-16); BILIRUBIN - TOTAL 0.42 mg/dL (0.2-1.3); CALCIUM 9.4 mg/dL (8.5-10.1); CARBON DIOXIDE 30.6 mmol/L (21.0-32.0); CREATININE - SERUM 1.2 mg/dL (0.6-1.3); POTASSIUM - SERUM 4.3 mmol/L (3.5-5.1)
[2017-12-04 11:50] LABS: APPEARANCE CLEAR (CLEAR); BILIRUBIN NEGATIVE (NEGATIVE); COLOR YELLOW (YELLOW); GLUCOSE NEGATIVE (NEGATIVE); KETONE NEGATIVE (NEGATIVE); NITRITE NEGATIVE (NEGATIVE); PROTEIN NEGATIVE (NEGATIVE); SPECIFIC GRAVITY 1.025 (1.005-1.020); UROBILINOGEN NORMAL (NORMAL)
[2017-12-04 11:51] LABS: BACTERIA FEW /hpf (NONE SEEN); HYALINE CAST RARE /lpf (NONE SEEN); MUCUS <1+ /lpf (NONE SEEN); WHITE CELLS - URINE OCC /hpf (0-5)
[2017-12-04 12:13] LABS: BASOPHILS 0.2 % (0-2); EOSINOPHILS 2.3 % (0-7); HEMATOCRIT 50.7 % (42.0-54.0); HEMOGLOBIN 17.4 g/dL (13.5-17.5); IMMATURE GRANULOCYTES 0.2 % (0-5); LYMPHOCYTES 33.3 % (15-50); MCH 33.1 pg (26.0-34.0); MCHC 34.3 g/dL (31.0-37.0); MCV 96.6 fL (80.0-100.0); MONOCYTES 9.3 % (2-11); NEUTROPHILS 54.7 % (40-80); PLATELET COUNT 189 10x3/uL (130-400); RBC 5.25 10x6/uL (4.20-6.10); RDW 12.5 % (11.5-14.5)
[~2017-12-05] VITALS: Ht 167.6 cm; Wt 76.1 kg
[2017-12-05] VITALS (47 sets, daily range): BP systolic 95–153; BP diastolic 46–80; BMI 25.8; BMI 26.3
--- NOTE | ~2017-12-05 | HP ---
PATIENT: AMITA MICHELE MEDICAL RECORD: [id number] ACCOUNT: [id number] LOCATION:[facility] : 31 ADMISSION DATE: 12/05/17 HISTORY AND PHYSICAL EXAMINATION AMITA Rivera (87yo, M) ID# [id number]. Date/Time11/15/2017 10:95UOBRI36/20/1932Service Dept.NP_[facility] ClinicProviderGATO GREY MDInsuranceMed Primary: [place] Insurance # : [id number] PCP : RAYMOND WHITE Employer Name : RETIRED Med Secondary: [place]) Insurance # : [id number] Policy/Group # : [id number] PCP : RAYMOND WHITE Employer Name : RETIRED Prescription: [employer] - This member could not be found in the payer's files. Please verify coverage and all member demographic information. Chief Complaint Followup: Subclavian artery stenosis one month hospital follow up Patient's Care Team Primary Care Provider (): RAYMOND WHITE: [address] [place] [address] [address], [place] [address], , Patient's Pharmacies [facility] ([facility]): [address] [place] [address] [place] [address], , Vitals BP:108/70 sitting L arm 11/15/2017 10:50 am 118/72 sitting R arm 11/15/2017 10:51 amBP Cuff Size:adult 11/15/2017 10:50 am adult 11/15/2017 10:51 amHR:72,reg 11/15/2017 10:51 amHt:5 ft 6 in 11/15/2017 10:42 amWt:160 lbs 11/15/2017 10:52 amNotes:has dizziness with position changes unable to induce postural hypotension 11/15/2017 10:55 amBMI:25.8 11/15/2017 10:52 amAllergies Reviewed Allergies SHELLFISH DERIVED: Vomiting (Moderate to severe)Medications Reviewed Medications ascorbic acid (vitamin C) 500 mg tablet Take by oral route.11/14/17 [facility] Wilsoncholecalciferol (vit D3) 1,000 unit-vitamin K2 (MK4) 100 mcg tablet Take by oral route.11/14/17 [facility] Wilsonnaproxen 500 mg tablet 1 tab 2 times daily with food for back01/04/17 prescribedJerry Cannaday DO FISH OIL, VITAMIN E, VITAMIN C, VITAMIN D Vaccines Reviewed Vaccines Vaccine TypeDateAmt.RouteSiteLot #Mfr.Exp. DateDate on VISVIS BzbvdZzcikkeiwtDmkkamxlsskfvqyyot63/01/89Pfrmdgdripgtnyiadjdiqufa09/01/15Problems Reviewed Problems HISTORY AND PHYSICAL [id number] AMITA MICHELE Malignant neoplasm of skin - Onset: 03/04/2016 Essential hypertension - Onset: 08/18/2016 Subclavian artery stenosis - Onset: 11/14/2017 - LEFT Syncope - Onset: 08/18/2016 Low back strain - Onset: 01/04/2017 Family History Reviewed Family History Mother- Heart disease - AlcoholismUnspecified Relation- Malignant neoplastic disease - states sibling but did not specify brother or sisterSocial History Reviewed Social History Cardiology Smoking Status: Never smoker High Cholesterol: N High blood pressure: N Exercise level: Moderate Alcohol intake: Occasional Marital status: Surgical History Reviewed Surgical History 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 HPI Peripheral Vascular Disease Reported by patient. Location: arm Quality: weakness; left arm weaker subjectively Severity: mild Duration: has noted for months Onset/Timing: daily Context: with using upper extremity Alleviating Factors: rest Associated Symptoms: weakness; paresthesias; left arm falls asleep at night left subclavian steal with dizziness, including at rest Previous symptoms of dyspnea resolved after stent for coronary artery disease On Plavix ROS ROS as noted in the HPI Physical Exam Patient is an 87-year-old male. Constitutional: General Appearance well nourished and developed and HISTORY AND PHYSICAL [id number] AMITA MICHELE healthy-appearing. Level of Distress NAD. Ambulation ambulating normally. Cardiovascular: Apical Impulse not displaced or no thrill. Heart Auscultation no murmurs, rubs, or gallops and RRR. Edema no edema or varicosities. Lungs: Repiratory Effort no dyspnea. Percussion no dullness or flatness. Auscultation no wheezing, rhonchi, or rales / crackles and breathing sounds normal. Abdomen: Bowl Sounds normal. Inspection and Palpation no tenderness or masses and soft and non-distended. Liver non- tender and no hepatomegaly. Spleen non-tender and no splenomegaly. Hernia none palpable. Musculoskeletal System: Gait And Stance normal gait and stance. Digits and Nails normal nails and no cyanosis. Neurologic: Cranial Nerves grossly intact. Sensation grossly intact. Lymph Nodes: Lymph Nodes no cervical LAD or supraclavicular LAD. Eyes: Lids and Conjunctivae no discharge or pallor and non-injected. Pupils PERRLA. EOM EOMI. Lens clear. Sclerae non-icteric. Neck: Neck no masses, enlarged lymph nodes, or carotid bruits and supple and trachea midline. Thyroid no enlargement or nodules and non-tender. Skin: Inspection and Palpation no rash, lesions, or jaundice. 10 mm systolic blood pressure difference between arms Assessment / Plan 1. Subclavian artery stenosis I70.8: Atherosclerosis of other arteries 2. 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
--- NOTE | ~2017-12-05 | OP ---
PATIENT NAME: AMITA MICHELE MEDICAL RECORD: [id number] :32 LOCATION:[facility] D.CV07 ADMISSION DATE:12/05/17 SURGEON: KVNG GREY MD DATE OF OPERATION: 12/05/2017 SURGEON: Kvng Grey MD COGNOS DEVELOPER: Abdullahi Bermeo MD and VÍCTOR Ortiz OPERATION PERFORMED: Left carotid to subclavian artery bypass. PREOPERATIVE DIAGNOSIS: Left subclavian stenosis with subclavian steal. POSTOPERATIVE DIAGNOSES: Left subclavian stenosis with subclavian steal plus coronary artery disease, status post coronary stent. ANESTHESIA: General endotracheal anesthesia. ESTIMATED BLOOD LOSS: 20 cc. COMPLICATIONS: None. SPECIMEN: None. CONDITION: Stable. DISPOSITION: CV ICU. OPERATIVE FINDINGS: Soft carotid and middle portion of left subclavian artery bypass just beyond the thyrocervical trunk with a 6 mm PTFE graft, typical platelet dysfunction for Plavix, status post coronary stent. OPERATIVE INDICATION: Subclavian steal. DESCRIPTION OF PROCEDURE: The patient was brought to the operating suite. General anesthesia was obtained, the patient was prepped and draped. Incision was made over the left clavicle down through the platysma and dividing the clavicular head of the sternocleidomastoid muscle. The carotid was dissected out by dissecting the jugular vein, retracting it laterally identifying the vagus nerve and then encircling the common carotid artery, which was soft in this location. The scalene fat pad was divided. Phrenic nerve was identified. The phrenic nerve and anterior scalene muscle retracted medially and the subclavian artery was dissected out, encircled with vessel loops. Heparin was given. After heparin circulated, clamps were used as well as vessel loop on the thyrocervical trunk to expose the subclavian artery. An end-to-side anastomosis 6 mm PTFE was performed. Backbleeding was allowed. There was brisk backbleeding. The common carotid was clamped. EEG was normal during the clamping. End to side anastomosis again performed. First backbleeding and then flow restored to the common carotid and then down the subclavian with good flow. Heparin, which a total of 8000 had been given prior to the anastomosis was reversed. Thorough irrigation was undertaken. Surgicel and FloSeal were used for hemostasis and then the muscle layer was gently reapproximated, platysma closed and the skin closed. The patient was stable to the CV ICU. cc: Primary Care Physician OPERATIVE REPORT [id number] AMITA MICHELE TRANSINT:[id number] Voice Confirmation ID: [id number] DOCUMENT ID: [id number] KVNG GREY MD at 0720 CC: PATRICIO NJ MD [id number] DICTATION DATE: 12/05/17 1041 LENS POLISHER HAND: 12/05/17 1210 ADM IN [place] [address] [place] [address]
[~2017-12-05 05:00] MED LIST: ALEVE220 MG PO; ASCORBIC ACID500 MG PO; PLAVIX75 MG PO; VITAMIN D31000 UNIT PO
[2017-12-06] VITALS (28 sets, daily range): BP systolic 107–136; BP diastolic 40–93; Ht 167.6 cm; Wt 76.1 kg
[2017-12-07] VITALS (15 sets, daily range): BP systolic 101–133; BP diastolic 54–76
[2017-12-07] MEDS ORDERED: ASPIRIN EC81 M1 PO (13:12)
[2017-12-07] MEDS ORDERED: LOPRESSOR25 MG PO (13:12)
[2017-12-07] MEDS ORDERED: ULTRAM50 MG PO (13:22)
== END 2017-12-07 15:38 | disposition home or self-care (01) | DRG 253 ==
LOC: D.CVICU 05:00 → D.SDCHOLD 05:00 → D.CVICU 09:04
PROVIDERS: Internal Medicine Cardiovascular Disease; Thoracic Surgery (Cardiothoracic Vascular Surgery)
PROC: 03140JK Bypass Left Subclavian Artery to Left Extracranial Artery with Synthetic Substitute, Open Approach (ICD-10-PCS; principal; 2017-12-05 07:30)
DX: I70.8 Atherosclerosis of other arteries (principal); G45.8 Other transient cerebral ischemic attacks and related syndromes; I10 Essential (primary) hypertension; I25.10 Atherosclerotic heart disease of native coronary artery without angina pectoris

== ENCOUNTER → 2017-12-27 12:17 | Outpatient (CLI) | payer MEDICARE, BC, OTHER ==
[2017-12-06 14:36] VITALS: BMI 27.6
[~2017-12-27 12:17] MED LIST changes: +ASPIRIN EC81 M1 PO; +LOPRESSOR25 MG PO; +ULTRAM50 MG PO
== END | disposition home or self-care (01) ==
LOC: D.RAD 12:15
DX: J90 Pleural effusion, not elsewhere classified (principal)

== ENCOUNTER → 2017-12-28 12:26 | Outpatient (CLI) | payer MEDICARE, BC, OTHER ==
[2017-12-06 14:36] VITALS: BMI 27.6
== END | disposition home or self-care (01) ==
LOC: D.RAD 12:26
DX: R13.10 Dysphagia, unspecified (principal)

== ENCOUNTER 2018-07-04 09:21 | Observation (INO) | payer MEDICARE, BC, OTHER ==
[~2018-07-04] VITALS: Ht 167.6 cm; Wt 72.7 kg
[2018-07-04] VITALS (8 sets, daily range): BP systolic 111–165; BP diastolic 60–82
[2018-07-04 10:41] LABS: BASOPHILS 0.1 % (0-2); EOSINOPHILS 1.6 % (0-7); HEMATOCRIT 46.1 % (42.0-54.0); HEMOGLOBIN 15.9 g/dL (13.5-17.5); IMMATURE GRANULOCYTES 0.3 % (0-5); LYMPHOCYTES 25.2 % (15-50); MCH 32.6 pg (26.0-34.0); MCHC 34.5 g/dL (31.0-37.0); MCV 94.5 fL (80.0-100.0); MEAN PLATELET VOLUME 9.7 fL (7.4-10.4); MONOCYTES 8.2 % (2-11); NEUTROPHILS 64.6 % (40-80); PLATELET COUNT 180 10x3/uL (130-400); RBC 4.88 10x6/uL (4.20-6.10); RDW 12.7 % (11.5-14.5); WBC 7.9 10x3/uL (4.8-10.8)
[2018-07-04 10:55] LABS: ALBUMIN 3.5 g/dL (3.4-5.0); ANION GAP 12.8 mmol/L (8-16); BILIRUBIN - TOTAL 0.66 mg/dL (0.2-1.3); CALCIUM 8.7 mg/dL (8.5-10.1); CARBON DIOXIDE 29.9 mmol/L (21.0-32.0); CREATININE - SERUM 1.2 mg/dL (0.6-1.3); POTASSIUM - SERUM 4.7 mmol/L (3.5-5.1)
--- NOTE | 2018-07-04 11:43 | NUR ---
PT AMBULATED WITH ONE ASSIST PER EDP TO EVALUATE PT. PT REPORTS CONTINUED DIZZINESS UPON SITTING AND STANDING. PT REPORTS HE FEELS "WOBBLY" ON HIS FEET. EVALUATION REPORTED TO EDP.
--- NOTE | 2018-07-04 11:43 | NUR ---
PT AMBULATED WITH ONE ASSIST. PT REPORTS HE IS STILL DIZZY AND FEELS "WOBBLY" ON HIS FEET.
--- NOTE | 2018-07-04 12:40 | NUR ---
PT GIVEN [facility] LUNCH TRAY AT THIS TIME.
--- NOTE | 2018-07-04 15:39 | NUR ---
PT OBSERVED RESTING WITH EYES CLOSED IN BED. LIGHTS DIMMED, BLANKETS GIVEN. RESPIRATIONS EVEN AND UNLABORED.
--- NOTE | 2018-07-04 17:40 | NUR ---
PT LYING IN BED, RESTING WITH EYES CLOSED. RESPIRATIONS EVEN AND UNLABORED.
--- NOTE | 2018-07-04 19:32 | NUR ---
AWAKE AND ALERT COMPLAINT OF BEING HUNGRY ....FOOD PROVIDED CONSISTANT WITH DIET ORDERED LCTA SKIN WARM AND DRY DENIES PAIN OR OTHER NEEDS SR UP TO BRING TOTAL TO 2 BED LOW AND CALL LIGHT IS IN REACH LEFT SL WITH NO EDEMA NO RERDNESS
--- NOTE | 2018-07-04 19:35 | NUR ---
SANDWICH PROVIDED PER PT REQUEST, NAME AND DATE PLACED ON BOARD. PT IS KOTLIK, SITTING UP IN BED, HOB ABOVE 35, MILK AND JUICE PROVIDED. PT EATING SANDWICH WITH OUT ASSIST. PT LEFT AC IV S/L, BEDLOW AND CALL LIGHT IN REACH. PT HAS TELEMETRY ON, DENIES ANY OTHER NEEDS. WILL CPOC
--- NOTE | 2018-07-04 22:04 | NUR ---
PHARMACY WAS NOTIFIED AT 2129 THAT I NEEDED ANTIVERT FOR 2100 MED
[2018-07-05 00:26] VITALS: BP 142/76; Ht 167.6 cm; Wt 72.7 kg
[2018-07-05 00:50] VITALS: BP 134/75
--- NOTE | 2018-07-05 02:15 | NUR ---
RESTING WITH EYES CLOSED BED LOW AND SRX2 CALL LIGHT IS IN REACH
[2018-07-05 04:00] VITALS: BP 130/80
--- NOTE | 2018-07-05 08:00 | NUR ---
ASSESSMENT COMPLETE. SL TO L AC. MANAGER MARKETING COMMUNICATION SR 78 PER TECH. [facility]. DENIES ANY NEEDS AT THIS TIME.
[2018-07-05 08:14] VITALS: BP 136/64
[2018-07-05 11:52] VITALS: BP 118/63
[2018-07-05] MEDS ORDERED: MECLIZINE HCL25 MG PO (12:47)
--- NOTE | 2018-07-05 13:20 | NUR ---
SUPERVISOR NUCLEAR MEDICINE REMOVED. SL REMOVED. CATHETER TIP INTACT. DISCHARGE TEACHING GIVEN TO PATIENT AND . VOICED UNDERSTANDING. WAITING ON RIDE HOME FROM FAMILY MEMBER.
--- NOTE | 2018-07-05 13:42 | NUR ---
DC'D HOME WITH FAMILY. ESCORTED TO VEHICLE VIA WC WITH BELONGINGS.
== END 2018-07-05 13:42 | disposition home or self-care (01) ==
LOC: D.ER 09:21 → D.EDHOLD 12:37 → D.M3 12:37 → OBSVTIME 13:57 → D.M3 16:11
PROVIDERS: Emergency Medicine; ADMIT Family Medicine
DX: R42 Dizziness and giddiness (principal); I25.10 Atherosclerotic heart disease of native coronary artery without angina pectoris; I10 Essential (primary) hypertension

== ENCOUNTER 2018-07-15 00:04 | Inpatient (IN) | payer MEDICARE, BC ==
[~2018-07-15] VITALS: Ht 167.6 cm; Wt 72.8 kg
[2018-07-15] VITALS (11 sets, daily range): BP systolic 100–152; BP diastolic 62–98; BMI 25.8
--- NOTE | ~2018-07-15 | HEMODYNAMI ---
PATIENT:AMITA MICHELE MEDICAL RECORD: [id number] : 32 [id number] ADMISSION DATE: 07/15/18 Generatedon:07/16/201813:50 Patient name: AMITA MICHELE Patient #: [id number] SSN: : 1930 Date of study: 07/16/2018 Page: Of Hemodynamic Procedure Report Patient Data Patient Demographics Procedure consent was obtained First Name: AMITA Gender: Male Last Name: LENY : 1930 Patient #: [id number] Age: 87 year(s) Race: Additional ID: [id number] Contact details Address: [address] [place] [address] State: [place] City: [place] Zip code: [address] Past Medical History Allergies Allergen Reaction Date Comments Reported Other allergy 10/25/2017 shellfish Other allergy 07/16/2018 Shellfish Admission Admission Data Admission Date: 07/15/2018 Admission Time: 5:09 Room #: D.2116 Height (in.): 66 BSA: 1.82 (m2) Height (cm.): 167.64 BMI: 25.88 (kg/m2) Weight (lbs.): 160.32 Weight (kg.): 72.72 Lab Results Lab Result Date: 07/16/2018 Lab Result Time: 0:00 Biochemistry Name Units Result Min Max BUN mg/dl 21 --(----)-* 7 18 Creatinine mg/dl 1.1 --(--*-)-- 0.6 1.3 CBC Name Units Result Min Max Hemoglobin g/dl 15.7 --(--*-)-- 13.5 17.5 Procedure Procedure Types Cath Procedure Diagnostic Procedure LHC LH w/Coronaries Sedation Charges Moderate Sedation up to 30 minutes PCI Procedure Coronary Stent Coronary Stent Initial Procedure Description Procedure Date Procedure Date: 07/16/2018 Procedure Start Time: 13:17 Procedure End Time: 13:47 Procedure Staff Name Function Kirk Jerry MD Performing Physician Chirag WILEY Marketing Financial Analyst Kimi Bailon RT Monitor Shilpa Irizarry RN Nurse Chirag Tanner RT Scrub Procedure Data Cath Procedure Fluoroscopy Diagnostic fluoroscopy Total fluoroscopy Time: 5.2 time: 5.2 min min Diagnostic fluoroscopy Total fluoroscopy dose: 338 dose: 338 mGy mGy Contrast Material Contrast Material Type Amount (ml) Isovue 300 143 Entry Location Entry Primary Successful Side Size Upsize Upsize Entry Closure Succes sful Closure Location (Fr) 1 (Fr) 2 (Fr) Remarks Device Remarks Femoral Right 5 Fr 6 Fr Exoseal artery Short Estimated blood loss: 10 ml Diagnostic catheters Device Type Used For End Catheter Placement MULTIPACK JL 4.0 5Fr Procedure catheter MULTIPACK 3DRC 5Fr Procedure catheter MULTIPACK Pigtail 5 Fr Procedure catheter Procedure Complications No complications Procedure Medications Medication Administration Route Dosage 0.9% NaCl I.V. 100 ml/hr Oxygen etCO2 Nasal cannula 2 l/min Lidocaine 2% added to field 20 Heparin Flush Bag added to field 2 bags (1000units/500ml NS) Versed I.V. 2 mg Fentanyl I.V. 50 mcg Versed I.V. 1 mg Heparin Bolus I.V. 7500 units Plavix P.O. 600 mg Hemodynamics Rest BSA: 1.82 (m2) HGB: 15.7 (g/dl) O2 Consumption: Estimated: 210.15 (ml/min) O2 Co nsumption indexed: Estimated:115.47 (ml/min/m) Heart Rate: 76 (bpm) Pressure Samples Time Site Value (mmHg) Purpose Heart Use Rate(bpm) 13:26 LV 126/-4,14 EDP 79 13:26 LV 128/-4,16 Snapshot 79 Gradients Valve Time Site Site Mean SEP/DFP Peak To Heart Use 1 2 (mmHg) (sec/min) Peak Rate (mmHg) (bpm) Aortic 13:26 LV AO 72 Snapshots Pre Cath Intra NCS Post Cath Vital Signs Time Heart Resp SPO2 etCO2 NIBP (mmHg) Rhythm Pain Sedation Rate (ipm) (%) (mmHg) Status Level (bpm) 12:55:12 77 19 97 11.3 139/88(117) NSR 0 (11) 10(A) , No pain 12:59:28 75 11 99 28 134/83(117) NSR 0 (11) 10(A) , No pain 13:03:44 74 12 98 31 120/72(95) NSR 0 (11) 10(A) , No pain 13:07:58 74 11 97 35 107/61(80) NSR 0 (11) 10(A) , No pain 13:12:12 75 10 96 35 104/60(85) NSR 0 (11) 10(A) , No pain 13:16:24 72 11 97 30 110/61(83) NSR 0 (11) 9(A) , No pain 13:20:36 75 12 96 20 115/69(98) NSR 0 (11) 9(A) , No pain 13:24:48 76 12 97 26.4 114/72(97) NSR 0 (11) 9(A) , No pain 13:28:58 77 12 97 19.6 121/75(94) NSR 0 (11) 9(A) , No pain 13:33:04 76 14 98 26.4 105/74(92) NSR 0 (11) 9(A) , No pain 13:37:10 76 13 96 18 124/78(107) NSR 0 (11) 9(A) , No pain 13:42:09 81 15 98 15.1 147/96(125) NSR 0 (11) 10(A) , No pain 13:46:27 81 16 94 7.5 158/105(137) NSR 0 (11) 10(A) , No pain Medications Time Medication Route Dose Verified Delivered Reason Notes Effectiveness by by 13:14:04 0.9% NaCl I.V. 100 Kirk Shilpa used for ml/hr Rosalino Irizarry newspaper distributor supervisor 13:14:12 Oxygen etCO2 2 Kirk Shilpa used for Nasal l/min Rosalino Irizarry procedure cannula RN 13:14:18 Lidocaine 2% added 20ml Kirk Kirk for local to vial Rosalino Jerry MD anesthetic field 13:14:27 Heparin Flush added 2 Kirk Kirk used for Bag to bags Rosalino Jeryr MD procedure (1000units/500ml field NS) 13:14:49 Versed I.V. 2 mg Kirk Shilpa for sedation Rosalino Irizarry RN 13:14:55 Fentanyl I.V. 50 Kirk Shilpa for sedation mcg Rosalino Irizarry RN 13:29:55 Versed I.V. 1 mg Kirk Shilpa for sedation Rosalino Irizarry RN 13:31:09 Heparin Bolus I.V. 7500 Kirk Shilpa for verif ied units Rosalino Irizarry anticoagulation with Dr. CYNDY Jerry 13:32:04 Plavix P.O. 600 Kirk Shilpa for mg Rosalino Irizarry antiplatelet RN therapy Procedure Log Time Note 12:32:21 Patient Height : 66 inches 12:32:29 Patient Weight : 160.32 lbs 12:34:15 Lab Result : Hemoglobin 15.7 g/dl 12:34:15 Lab Result : Creatinine 1.1 mg/dl 12:34:15 Lab Result : BUN 21 mg/dl 12:34:22 Diagnostic Cath status Elective 12:35:13 Chirag Tanner RT(R) sent for patient. Start room use. 12:35:15 Time tracking: Regular hours (M-F 7:00 - 5:00) 12:35:19 Plan of Care:Hemodynamics will remain stable., Cardiac rhythm will remain stable., Comfort level will be maintained., Respiratory function will remain adequate., Patient/ family verbilizes understanding of procedure., Procedure tolerated without complication., Recovers from procedure without complications.. 12:45:42 Patient received from Med II to CCL 3 Alert and oriented. Tansferred to table in Supine position. 12:45:43 Warm blankets applied, and criselda hugger turned on for patient comfort. 12:45:43 Correct patient and procedure confirmed by team. 12:45:45 Signed procedure consent form obtained from patient. 12:45:46 ECG and BP/O2 sat monitors applied to patient. 12:45:47 Pre-procedure instructions explained to patient. 12:45:47 Pre-op teaching completed and patient verbalized understanding. 12:45:48 Family in patients room. 12:45:49 Patient NPO since Midnight. 12:54:09 Vital chart was started 13:03:36 Baseline sample Acquired. 13:03:40 Rhythm: sinus rhythm 13:03:42 Full Disclosure recording started 13:03:52 H&P Date Dictated: 07/15/2018 Within 30 days and on chart., H&P Addendum completed by physician on day of procedure. (MUST COMPLETE FOR ALL OUTPATIENTS). 13:04:10 Patient allergic to Other allergyShellfish 13:04:13 Is the patient allergic to Iodine/contrast media? No. 13:04:14 Was the patient premedicated? Yes 13:04:16 Is patient on blood thinner?No 13:04:18 Patient diabetic? No. 13:04:22 Snore? Yes 13:04:23 Sleep apnea? No 13:04:28 Dentures? No ? 13:04:37 IV patent on arrival in left forearm with 0.9% NaCl at [facility]. 13:04:42 Lab results completed and on chart. 13:04:48 Right Radial & Right Groin area was prepped with chlora-prep and draped in sterile fashion 13:05:09 Sharps counted by scrub and verified by R.N. 13:05:32 Physician paged 13:11:34 Zero performed for pressure channel P1 13:11:43 Physician arrived 13:14:04 0.9% NaCl 100 ml/hr I.V. was administered by Shilpa Irizarry RN; used for procedure; 13:14:12 Oxygen 2 l/min etCO2 Nasal cannula was administered by Shilpa Irizarry RN; used for procedure; 13:14:18 Lidocaine 2% 20ml vial added to field was administered by Kirk Jerry MD; for local anesthetic; 13:14:27 Heparin Flush Bag (1000units/500ml NS) 2 bags added to field was administered by Kirk Jerry MD; used for procedure; 13:14:37 --------ALL STOP TIME OUT------ 13:14:38 Final Timeout: patient, procedure, and site verified with staff and physician. All members of the team are in agreement. 13:14:41 Right Radial & Right Groin site verified by team. 13:14:49 Versed 2 mg I.V. was administered by Shilpa Irizarry RN; for sedation; 13:14:49 Fire Safety Assessment: A--An alcohol-based skin anteseptic being used preoperatively., C--Open oxygen or nitrous oxide is being used., D--An ESU, laser, or fiber-optic light is being used. 13:14:55 Fentanyl 50 mcg I.V. was administered by Shilpa Irizarry RN; for sedation; 13:14:55 Physical assessment completed. ASA score P 2 - A patient with mild systemic disease as per Kirk Jerry MD. 13:14:59 Sedation plan: IV Moderate Sedation Medication:Versed, Fentanyl 13:15:04 Use device set Radial Dx or PCI 13:15:06 Procedure started. 13:15:51 ACIST Syringe (71957) opened to sterile field. 13:15:51 Medline Cath Pack ([id number]) opened to sterile field. 13:15:52 Bag Decanter (2002S) opened to sterile field. 13:15:54 DIAGNOSTIC WIRE .035 260cm J wire (817752) opened to sterile field. 13:15:55 ACIST Hand Control (88201) opened to sterile field. 13:15:55 ACIST Manifold (19501) opened to sterile field. 13:15:56 Tegaderm 4 x 4 (1626W) opened to sterile field. 13:15:57 MBrace Wrist Support (036492418) opened to sterile field. 13:16:03 SHEATH 6FR Slender (77-1726) opened to sterile field. 13:17:46 Local anesthetic to right radial artery with Lidocaine 2% by Kirk Jerry MD.INITIAL ACCESS ONLY 13:17:56 Local anesthetic to right femoral artery with Lidocaine 2% by Kirk Jerry MD.ADDITIONAL ACCESS 13:18:06 A 5 Fr sheath was inserted into the Right Femoral artery 13:18:20 SHEATH 5FR Hudson (IRK236) opened to sterile field. 13:18:42 DIAGNOSTIC Multipack 5Fr catheter set (YY5255) opened to sterile field. 13:21:08 A MULTIPACK JL 4.0 5Fr catheter was advanced over the wire and used for Procedure. 13:21:13 LCA angiography performed. 13:22:30 Catheter removed. 13:22:41 A MULTIPACK 3DRC 5Fr catheter was advanced over the wire and used for Procedure. 13:22:51 RCA angiography performed. 13:23:55 Catheter removed. 13:25:10 A MULTIPACK Pigtail 5 Fr catheter was advanced over the wire and used for Procedure. 13:25:13 LV angiography performed. 13:27:04 Catheter removed. 13:27:10 EF : 55 % 13:27:17 Proceeding to intervention. 13:28:45 GUIDE 6FR XBLAD 3.5 catheter ([id number]) opened to sterile field. 13:28:46 TUBING High Pressure Extension Tubing (Rosalino) ([id number]) opened to sterile field. 13:28:47 INFLATOR Merit BasixCompak (AO5315) opened to sterile field. 13:28:50 SHEATH 6FR Hudson (UWW216) opened to sterile field. 13:28:50 BMW 300cm Yuma 2 J wire (3085034V) opened to sterile field. 13:29:05 Sheath upsized to a 6 Fr Short. 13:29:13 6 Fr xblad3.5 guide catheter was inserted over the wire 13:29:20 BMW wire advanced. 13:29:55 Versed 1 mg I.V. was administered by Shilpa Irizarry RN; for sedation; 13:31:09 Heparin Bolus 7500 units I.V. was administered by Shilpa Irizarry RN; for anticoagulation; verified with Dr. Jerry 13:32:04 Plavix 600 mg P.O. was administered by Shilpa Irizarry RN; for antiplatelet therapy; 13:32:13 Wire advanced across lesion. 13:36:37 Place stent Inflation Number: 1 A INTEGRITY OTW 2.5 X 22 stent ([id number]) was prepped and advanced across the Mid CX. The stent was deployed at 12 DEVANTE for 0:07 (min:sec). 13:38:01 Stent catheter was removed intact over wire. 13:41:25 Place stent Inflation Number: 1 A INTEGRITY OTW 3.0 X 15 stent ([id number]) was prepped and advanced across the Mid CX1. The stent was deployed at 16 DEVANTE for 0:14 (min:sec). 13:42:09 EXOSEAL 6Fr (EX600) opened to sterile field. 13:42:12 Balloon removed over the wire. 13:42:14 Wire removed. 13:42:14 Guide catheter removed. 13:42:23 Sheath removed intact; hemostasis achieved with Exoseal to the Right Femoral artery. 13:42:25 Procedure ended.(Physican Out) 13:43:13 Fluoroscopy time 05.20 minutes. 13:43:49 Fluoroscopy dose: 338 mGy 13:43:49 Flurop Dose total: 338 13:43:54 Contrast amount:Isovue 300 143ml. 13:43:57 Sharps counted by scrub and verified by R.N. 13:43:59 Insertion/operative site no bleeding no hematoma. 13:44:03 Post-op/insertion site Right Femoral artery dressed using a 4 x 4 and Tegaderm. 13:44:53 Post Procedure Pulses reassessed and unchanged 13:44:59 Post-procedure physical assessment completed. ASA score P 2 - A patient with mild systemic disease as per Kirk Jerry MD. 13:45:03 Post procedure rhythm: sinus rhythm 13:45:07 Estimated blood loss: 10 ml 13:46:12 Post procedure instruction explained to patient.Patient verbalizes understanding. 13:46:35 Procedure type changed to Cath procedure, Diagnostic procedure, LHC, LHC w/Coronaries, Sedation Charges, Moderate Sedation up to 30 minutes, PCI procedure, Coronary Stent, Coronary Stent Initial 13:46:37 Procedure and supply charges have been captured, reviewed, submitted and are correct. 13:47:02 Procedure Complication : No complications 13:47:06 Vital chart was stopped 13:47:06 See physician's report for complete and final results. 13:47:08 Report given to Pre/Post Procedure Room. 13:47:11 Patient transfered to Pre/Post Procedure Room with Stretcher. 13:47:15 Procedure ended. 13:47:15 Full Disclosure recording stopped 13:47:18 End room use (Document Last) 13:47:18 End room use (Document Last) 13:47:19 End room use (Document Last) 13:48:50 ACC-PCI Only Patient was given prescriptions, or instructed by Kirk Jerry MD to start/continue the following medications upon discharge: Plavix Intervention Summary Intervention Notes Time ActionType Lesion and Equipment Action# Pressure Duration Attributes Used 13:36:37 Place stent Mid CX INTEGRITY 1 12 00:07 OTW 2.5 X 22 stent ([id number]) 13:41:25 Place stent Mid CX1 INTEGRITY 1 16 00:14 OTW 3.0 X 15 stent ([id number]) Device Usage Item Name Manufacture Quantity Catalog Hospital Part Current Minimal Lot# / Number Charge Number Stock Stock Serial# Code ACIST Acist 1 47724 649380 217589 002256 20 Syringe Global Integrity (04609) eVeritas, Inc. Inc Medline Medline 1 [id number] 320859 92411 284251 5 Cath Pack ([id number]) Bag Microtek 1 877219 60113 794473 5 Decanter Medical Inc. (2002S) DIAGNOSTIC St Theodore 1 530226 594873 037611 298496 30 WIRE .035 260cm J wire (466920) ACIST Hand Acist 1 17133 783114 676818 756104 5 Control Medical (35355) Systems Inc ACIST Acist 1 85085 785812 750891 667360 5 Manifold Medical (21911) Systems Inc Tegaderm 4 3M 1 1626W 427102 692343 365048 5 x 4 (1626W) MBrace Advanced 1 140-0250-00 923621 44996 006795 5 Wrist Vascular Support Dynamics ([id number]) SHEATH 6FR Terumo 1 [id number] 749990 449290 464499 5 Slender (80-1060) SHEATH 5FR Terumo 1 ZIZ097 617873 448900 420681 5 Hudson (QTS661) DIAGNOSTIC Cardinal 1 AG8791 752551 57141 077066 30 Multipack Health 5Fr catheter set (NU5060) MULTIPACK Cardinal 1 696079 5 JL 4.0 5Fr Health catheter MULTIPACK Cardinal 1 752297 5 3DRC 5Fr Health catheter MULTIPACK Cardinal 1 404640 5 Pigtail 5 Health Fr catheter GUIDE 6FR Cardinal 1 [id number] 910379 420047 700246 10 XBLAD 3.5 Health catheter (70657484) TUBING High Merit 1 [id number] 426480 48588 539374 10 Pressure Medical Extension Tubing (Jerry) (TK3916P) INFLATOR Merit 1 GS3514 080742 201467 143063 15 [facility] Medical BasixCompak (XF8460) SHEATH 6FR Terumo 1 XCJ343 932389 164941 636841 40 Hudson (KXJ691) BMW 300cm Key 1 [id number] 333237 803960 043412 5 Yuma 2 Vascular J wire (9800893Y) INTEGRITY Medtronic 1 [id number] 406515 746067 172291 0 [id number] OTW 2.5 X 22 stent ([id number]) INTEGRITY Medtronic 1 [id number] 376088 928795 498457 1 [id number] OTW 3.0 X 15 stent ([id number]) EXOSEAL 6Fr Cardinal 1 EX600 013739 016558 019040 10 (EX600) Health Signature Audit Fraser Stage Time Signature Unsigned Intra-Procedure 07/16/2018 Kimi Bailon 1:50:00 PM RT(R) Signatures Monitor : Kimi Bailon Signature : RT Date : Time : [address] [address]
[~2018-07-15 00:04] MED LIST changes: +MECLIZINE HCL25 MG PO
[2018-07-15 00:52] LABS: BASOPHILS 0.3 % (0-2); EOSINOPHILS 2.5 % (0-7); HEMATOCRIT 47.1 % (42.0-54.0); IMMATURE GRANULOCYTES 0.3 % (0-5); LYMPHOCYTES 23.6 % (15-50); MCH 32.4 pg (26.0-34.0); MCV 95.3 fL (80.0-100.0); MEAN PLATELET VOLUME 9.9 fL (7.4-10.4); NEUTROPHILS 63.3 % (40-80); PLATELET COUNT 177 10x3/uL (130-400); RBC 4.94 10x6/uL (4.20-6.10); RDW 12.7 % (11.5-14.5); WBC 10.1 10x3/uL (4.8-10.8)
--- NOTE | 2018-07-15 01:02 | NUR ---
PT SLEEPING ON BED, NO S/S OF ACUTE DISTRESS NOTED AT THIS TIME. PT FAMILY AT BEDSIDE.
[2018-07-15 01:06] LABS: PROTIME 12.7 SECONDS (11.6-15.0)
[2018-07-15 01:07] LABS: APTT 36.9 SECONDS (22.8-39.4)
[2018-07-15 01:08] LABS: D-DIMER-QUANTITATIVE 0.94 ug/mLFEU (0.20-0.54)
[2018-07-15 01:13] LABS: ALBUMIN 3.2 g/dL (3.4-5.0); ALKALINE PHOSPHATASE 63 U/L (46-116); ALT (SGPT) 18 U/L (10-68); BILIRUBIN - TOTAL 0.25 mg/dL (0.2-1.3); CALC OSMOLALITY 286 mosm/kg (275-300); CALCIUM 8.4 mg/dL (8.5-10.1); CARBON DIOXIDE 24.9 mmol/L (21.0-32.0); CHLORIDE - SERUM 106 mmol/L (98-107); CREATININE - SERUM 1.2 mg/dL (0.6-1.3); GLUCOSE 129 mg/dL (74-106); POTASSIUM - SERUM 4.4 mmol/L (3.5-5.1); PROTEIN - SERUM 6.8 g/dL (6.4-8.2); SODIUM 141 mmol/L (136-145); UREA NITROGEN 24 mg/dL (7-18); eGFR NON AFRICAN AMERICAN 61 mL/min (90-120)
[2018-07-15 01:24] LABS: CKMB 1.5 U/L (0.0-3.6); CREATINE KINASE 62 UL (21-232); TROPONIN-I 0.042 ng/mL (0.000-0.060)
--- NOTE | 2018-07-15 02:30 | NUR ---
PT UPDATED ON PLAN OF CARE. PT AND FAMILY DENY FURTHER QUESTIONS.
--- NOTE | 2018-07-15 03:03 | NUR ---
PT PROVIDED URINAL.
--- NOTE | 2018-07-15 03:11 | NUR ---
PT SCAN OF CHEST ORDERED, RADIOLOGY AT PT BEDSIDE. PT IS ALLERGIC TO SHELLFISH. BENADRYL 50MG ORDERED AND ADMINISTERED. PT LEFT VIA STRETCHER FOR CT. URINE SPECIMEN SENT TO LAB.
[2018-07-15 03:22] LABS: APPEARANCE CLEAR (CLEAR); BILIRUBIN NEGATIVE (NEGATIVE); COLOR YELLOW (YELLOW); GLUCOSE NEGATIVE (NEGATIVE); KETONE NEGATIVE (NEGATIVE); NITRITE NEGATIVE (NEGATIVE); PROTEIN NEGATIVE (NEGATIVE); UROBILINOGEN NORMAL (NORMAL)
--- NOTE | 2018-07-15 04:28 | NUR ---
PT SLEEPING, PT FAMILY AT BEDSIDE.
--- NOTE | 2018-07-15 06:01 | NUR ---
DR NORTON AT PT BEDSIDE.
--- NOTE | 2018-07-15 06:17 | NUR ---
REPORT RECEIVED FROM JOSLYN HCONG RN. PT ARRIVED TO ROOM BY WHEELCHAIR. INTRODUCED SELF TO PT AND FAMILY MEMBERS. NO S/S OF DISTRESS NOTED. WILL CTM.
--- NOTE | 2018-07-15 06:25 | NUR ---
PT DENIES TAKING ANY MEDICATIONS AT HOME, HOME MED RECONCILLIATION IS LEFT BLANK DUE TO THIS.
[2018-07-15 08:17] LABS: BASOPHILS 0.1 % (0-2); HEMATOCRIT 45.1 % (42.0-54.0); HEMOGLOBIN 15.7 g/dL (13.5-17.5); IMMATURE GRANULOCYTES 0.1 % (0-5); LYMPHOCYTES 36.9 % (15-50); MCH 32.7 pg (26.0-34.0); MCHC 34.8 g/dL (31.0-37.0); MONOCYTES 9.1 % (2-11); NEUTROPHILS 50.8 % (40-80); PLATELET COUNT 179 10x3/uL (130-400); RDW 12.6 % (11.5-14.5); WBC 8.2 10x3/uL (4.8-10.8)
[2018-07-15 08:58] LABS: CALC OSMOLALITY 281 mosm/kg (275-300); CALCIUM 8.3 mg/dL (8.5-10.1); CHLORIDE - SERUM 105 mmol/L (98-107); CREATINE KINASE 155 UL (21-232); CREATININE - SERUM 1.1 mg/dL (0.6-1.3); GLUCOSE 107 mg/dL (74-106); POTASSIUM - SERUM 4.2 mmol/L (3.5-5.1); SODIUM 140 mmol/L (136-145); UREA NITROGEN 21 mg/dL (7-18); eGFR NON AFRICAN AMERICAN 67 mL/min (90-120)
[2018-07-15 09:01] LABS: TROPONIN-I 6.944 ng/mL (0.000-0.060)
--- NOTE | 2018-07-15 09:27 | NUR ---
EKG COMPLETED. DOES NOT WANT SCDS AT THIS TIME. FAMILY AT BS. WILL CONT. PLAN OF CARE.
--- NOTE | 2018-07-15 10:12 | NUR ---
CONSENTS SIGNED FOR [facility].
[2018-07-15 14:52] LABS: CKMB 1.2 U/L (0.0-3.6); CREATINE KINASE 29 UL (21-232)
--- NOTE | 2018-07-15 16:04 | NUR ---
SHIVAM CALLED TO DR. NORTON. EKG DONE. NO NEW ORDERS GIVEN.
--- NOTE | 2018-07-15 18:58 | NUR ---
RECIEVED RESTING IN BED WITH EYES OPEN. ALERT AND ORIENTED X4. PLEASANT AND TALKATIVE. DENIES ANY NEEDS.
[2018-07-16 01:24] VITALS: BP 118/62
[2018-07-16 05:02] VITALS: BP 98/55
[2018-07-16 07:03] VITALS: BP 113/59
--- NOTE | 2018-07-16 07:30 | NUR ---
RECEIVED PT IN BED EYES CLOSED RESP UNLABORED
--- NOTE | 2018-07-16 10:58 | MORECARE ---
CASE MANAGEMENT DISCHARGE SUMMARY PATIENT: AMITA MICHELE UNIT: [id number] ADM DATE: 07/15/18 AGE: 87 : [birth year] SEX: M ROOM/BED: D.2116 AUTHOR: OLIVIA VALENCIA PHYSICIAN: REFERRING PHYSICIAN: MELISSA YANES MD DATE OF SERVICE: 07/16/18 Discharge Plan Patient Name: [facility]HE[facility] [facility] 1930 Planned Disposition: Anticipated Discharge Date: Discharge Date: Expected LOS: Initial Reviewer: [email or web address] Initial Review Date: 07/15/2018 Generated: 07/16/18 11:58 am Coverage Notice Reviewer: [email or web address] - Haley Vera Notice Issued Date-Time: 07/16/2018 10:23 Notice Type: Medicare Outpatient Observation Notice Notice Delivered To: Family Member Relationship to Patient: Self Tub Puller Name: Delivery Method: HAND - Hand Delivered Isis Days: Prior Verbal Notification: Recipient Understood Notice: Yes Recipient Signature: Yes Med Rec Note Co-signed by Attending: Coverage Notice Comment: DAREN DISCUSSED AFTER VERBAL CONSENT, WITH THE PATIENT, HIS FELIX, AND HIS DAUGHTER DARRIUS. Patient Name: AMITA MICHELE Page [phone] at 1058 All edits/amendments must be made on the electronic document DICTATION DATE: 07/16/18 1058 PLATE STACKER: TANVI 07/16/18 1058 RPT#: [id number] [place] DATE: STATUS: ADM IN [facility] [address] [place] [address] END OF REPORT
[2018-07-16 12:45] VITALS: Ht 167.6 cm; Wt 72.8 kg
[2018-07-16 12:53] VITALS: BP 126/65
--- NOTE | 2018-07-16 12:55 | NUR ---
PT TO ASSISTANT CHIEF TRAIN DISPATCHER VIA BED WITH ASSISTANT CHIEF TRAIN DISPATCHER STAFF
[2018-07-16 17:47] VITALS: BP 148/100
--- NOTE | 2018-07-16 19:19 | NUR ---
RECIEVED UP IN BED WITH EYES OPEN AND TV ON. ALERT AND ORIENTED X4. DSG TO RIGHT GROIN CDI. SMALL PURPLE BRUISE TO AREA. IV TO LEFT AC WITH CARDIZEM INFUSING. DENIES ANY NEEDS AT THIS TIME. WILL CONT. POC.
[2018-07-16 21:03] VITALS: BP 140/86
[2018-07-17 01:03] VITALS: BP 112/71
[2018-07-17 06:21] VITALS: BP 98/41
[2018-07-17 06:52] LABS: BASOPHILS 0.1 % (0-2); EOSINOPHILS 0 % (0-7); HEMATOCRIT 43.8 % (42.0-54.0); HEMOGLOBIN 14.9 g/dL (13.5-17.5); IMMATURE GRANULOCYTES 0.4 % (0-5); LYMPHOCYTES 16.8 % (15-50); MCH 32.2 pg (26.0-34.0); MCV 94.6 fL (80.0-100.0); MEAN PLATELET VOLUME 10.3 fL (7.4-10.4); MONOCYTES 8.2 % (2-11); NEUTROPHILS 74.5 % (40-80); PLATELET COUNT 210 10x3/uL (130-400); RBC 4.63 10x6/uL (4.20-6.10)
[2018-07-17 07:00] LABS: ALBUMIN 3.1 g/dL (3.4-5.0); ANION GAP 17.6 mmol/L (8-16); BILIRUBIN - TOTAL 0.34 mg/dL (0.2-1.3); CALCIUM 8.5 mg/dL (8.5-10.1); POTASSIUM - SERUM 4.6 mmol/L (3.5-5.1); PROTEIN - SERUM 6.7 g/dL (6.4-8.2)
[2018-07-17 07:23] LABS: WBC 17.7 10x3/uL (4.8-10.8)
[2018-07-17 07:27] LABS: CREATININE - SERUM 1.4 mg/dL (0.6-1.3)
[2018-07-17 09:06] VITALS: BP 114/67
[2018-07-17 13:06] VITALS: BP 115/65
[2018-07-17] MEDS ORDERED: PLAVIX75 MG PO (16:45)
[2018-07-17] MEDS ORDERED: CARDIZEM CD240 MG PO (16:45)
--- NOTE | 2018-07-17 18:15 | NUR ---
REVIEWED DISCHARGE INSTRUCTIONS WITH PT AND BOTH STATE UNDERSTANDING COPY GIVEN SALINE LOCK DCD TO RFA WITH IV CATHETER INTACT SITE FREE OF REDNESS OR EDEMA PT DISCHARGED HOME IN STABLE CONDTION WITH ALL PERSONAL BELONGING LEFT UNIT VIA W/C
--- NOTE | 2018-07-18 09:34 | MORECARE ---
CASE MANAGEMENT DISCHARGE SUMMARY PATIENT: AMITA MICHELE UNIT: [id number] ADM DATE: 07/17/18 AGE: 88 : 31 SEX: M ROOM/BED: D.2116 AUTHOR: OLIVIA VALENCIA PHYSICIAN: REFERRING PHYSICIAN: MELISSA YANES MD DATE OF SERVICE: 07/18/18 Discharge Plan Patient Name: [facility]ITA [facility]HELE [facility] : 1930 Planned Disposition: Home Anticipated Discharge Date: 07/17/18 Discharge Date: 07/17/2018 Expected LOS: 1 Initial Reviewer: [email or web address] Initial Review Date: 07/15/2018 Generated: 07/18/18 10:34 am Coverage Notice Reviewer: [email or web address] - Haley Vera Notice Issued Date-Time: 07/16/2018 10:23 Notice Type: Medicare Outpatient Observation Notice Notice Delivered To: Family Member Relationship to Patient: Self Clinical Pharmacist Name: Delivery Method: HAND - Hand Delivered Isis Days: Prior Verbal Notification: Recipient Understood Notice: Yes Recipient Signature: Yes Med Rec Note Co-signed by Attending: Coverage Notice Comment: DAREN DISCUSSED AFTER VERBAL CONSENT, WITH THE PATIENT, HIS FELIX, AND HIS DAUGHTER DARRIUS. Last DP export: 07/16/18 9:58 a Patient Name: AMITA MICHELE Page [phone] at 0934 All edits/amendments must be made on the electronic document DICTATION DATE: 07/18/18932 BANKING MANAGEMENT CONSULTING MANAGER: TANVI 07/18/18932 RPT#: [id number] DC DATE:07/17/18 STATUS: DIS IN [facility] [address] [place] [address] END OF REPORT
== END 2018-07-17 18:15 | disposition home or self-care (01) | DRG 249 ==
LOC: D.ER 00:04 → OBSVTIME 05:09 → D.EDHOLD 05:09 → D.M2 05:17
PROVIDERS: Emergency Medicine; Family Medicine; Internal Medicine Cardiovascular Disease; ADMIT Internal Medicine Nephrology
PROC: B2111ZZ Fluoroscopy of Multiple Coronary Arteries using Low Osmolar Contrast (ICD-10-PCS; 2018-07-16)
PROC: B2151ZZ Fluoroscopy of Left Heart using Low Osmolar Contrast (ICD-10-PCS; 2018-07-16)
PROC: 02703EZ Dilation of Coronary Artery, One Artery with Two Intraluminal Devices, Percutaneous Approach (ICD-10-PCS; principal; 2018-07-16 12:35)
PROC: 4A023N7 Measurement of Cardiac Sampling and Pressure, Left Heart, Percutaneous Approach (ICD-10-PCS; 2018-07-16 12:35)
DX: I21.4 Non-ST elevation (NSTEMI) myocardial infarction (principal); N17.9 Acute kidney failure, unspecified; I25.110 Atherosclerotic heart disease of native coronary artery with unstable angina pectoris; I73.9 Peripheral vascular disease, unspecified

== ENCOUNTER → 2018-11-05 13:01 | Outpatient (CLI) | payer MEDICARE, BC ==
[2018-07-16 12:45] VITALS: BMI 25.8
[~2018-11-05 13:01] MED LIST changes: +BAYER CHEWABLE81 MG PO; +CARDIZEM CD240 MG PO; +NITROQUICK0.4 MG SL; +PREDNISONE20 MG PO
--- NOTE | 2018-11-08 10:26 | EC ---
PATIENT:AMITA MICHELE DATE OF SERVICE: 11/05/18 SEX: M MEDICAL RECORD: [id number] DATE OF : [birth year] LOCATION:D.[facility] AGE OF PATIENT: 88 ADMISSION DATE: 11/05/18 REFERRING PHYSICIAN: INTERPRETING PHYSICIAN: ELHAM PERALTA MD ECHOCARDIOGRAM REPORT ECHO CHARGES 4 ECHO COMPLETE Date: 11/05/18 CLINICAL DIAGNOSIS: JAIMES H/O HTN/A-FIB/CAD/PVD ECHOCARDIOGRAPHIC MEASUREMENTS (adult normal given) AC root (d.<3.7cm) 3.6 cm LV Septum d (<1.2 cm> 0.9 cm Valve Excursion 1.63 cm LV Septum (systole) 1.3 cm Left Atria (s.<4.0cm> 3.4 cm LVPW d(<1.2cm) 0.9 cm RV (d.<2.3cm) 2.0 cm LVPW (sytole) 1.5 cm LV diastole(<5.6CM) 4.6 cm MV E-F(>70mm/sec) cm LV systole 2.9 cm LVOT Diameter 1.7 cm MV exc.(>10mm) cm Est.ejection fraction (50-75%) % DOPPLER: LVIT cm/sec A 108 cm/sec E 49.0 cm/sec LA cm/sec RVSP mmHg LVOT 108 cm/sec AOP1/2T m/s Asc. Ao 89.0 cm/sec RVOT 63.0 cm/sec RA cm/sec PA 100 cm/sec AV Gradient Peak 3.2 mmHg AV Mean 1.4 mmHg AV Area 3.4 cm MV Gradient Peak 5.0 mmHg MV Mean 1.2 mmHg MV Area cm COMMENTS: OP - HC [place] Construction Supervisor: 1 MAX SARAH Infectious Disease Technician: 3 Dr. Hoover TAPE# PACS Pericardial Effusion N DATE OF SERVICE: Adequate 2D, color flow, spectral Doppler, and M-Mode. No LVH. LV internal dimension is normal. Wall motion is normal. EF is greater than or equal to 55%. Aortic valve sclerosis without evidence of stenosis on Doppler interrogation. Left atrium is normal at 3.4 cm. Mitral valve shows no prolapse. Trace MR. Right-sided chambers are grossly normal. Trace to mild TR on color flow imaging. TRANSINT:[id number] Voice Confirmation ID: [id number] DOCUMENT ID: [id number] ECHOCARDIOGRAM REPORT [id number] AMITA MICHELE,ELHAM Dewitt MD at 1026 CC: [id number] DICTATION DATE: 11/06/18 1456 PULLER THROUGH: 11/06/18 1553 DEP CLI 11/05/18 [place] [id number] [place] [id number]
== END | disposition home or self-care (01) ==
LOC: D.HCCARDIO 13:00
PROVIDERS: ATTEND Internal Medicine Interventional Cardiology
DX: R55 Syncope and collapse (principal)

== ENCOUNTER 2019-02-18 10:55 | Outpatient (CLI) | payer MEDICARE, BC ==
[~2019-02-18] VITALS: Ht 170.2 cm; Wt 72.7 kg
--- NOTE | ~2019-02-18 | HEMODYNAMI ---
PATIENT:AMITA MICHELE MEDICAL RECORD: [id number] : 32 LOCATION:[facility] ADMISSION DATE: 02/18/19 Generatedon:02/18/201913:48 Patient name: AMITA MICHELE Patient #: [id number] SSN: : 1930 Date of study: 02/18/2019 Page: Of Hemodynamic Procedure Report Patient Data Patient Demographics Procedure consent was obtained First Name: AMITA Gender: Male Last Name: LENY : 1930 Patient #: [id number] Age: 88 year(s) Race: Additional ID: [id number] Contact details [address]: [address] [place] [address] State: [place] City: [place] Zip code: [address] Past Medical History Allergies Allergen Reaction Date Comments Reported Other allergy 10/25/2017 shellfish Other allergy 07/16/2018 Shellfish Shellfish 02/18/2019 Admission Admission Data Admission Date: 02/18/2019 Admission Time: 10:55 Arrival Date: 02/18/2019 Arrival Time: 0:00 Room #: MIRIAM Height (in.): 66.93 BSA: 1.84 (m2) Height (cm.): 170 BMI: 25.26 (kg/m2) Weight (lbs.): 160.94 Weight (kg.): 73 Lab Results Lab Result Date: 02/18/2019 Lab Result Time: 0:00 Biochemistry Name Units Result Min Max BUN mg/dl 22 --(----)-* 7 18 Creatinine mg/dl 1.3 --(---*)-- 0.6 1.3 eGFR ml/min 55 *-(----)-- 90 120 NONAFRICAN CBC Name Units Result Min Max Hematocrit % 49.3 --(--*-)-- 42 54 Hemoglobin g/dl 17.5 --(---*)-- 13.5 17.5 Procedure Procedure Types Cath Procedure Diagnostic Procedure LHC LHC w/Coronaries Procedure Description Procedure Date Procedure Date: 02/18/2019 Procedure Start Time: 13:32 Procedure End Time: 13:43 Procedure Staff Name Function Imtiaz Martel MD Performing Physician Desire Payne RT Monitor Tracey Bui RT Scrub Sarbjit Garcia RN Nurse Chirag Tanner RT Lacrosse Player Procedure Data Cath Procedure Fluoroscopy Diagnostic fluoroscopy Total fluoroscopy Time: 1.4 time: 1.4 min min Diagnostic fluoroscopy Total fluoroscopy dose: 321 dose: 321 mGy mGy Contrast Material Contrast Material Type Amount (ml) Isovue 300 65 Entry Location Entry Primary Successful Side Size Upsize Upsize Entry Closure Succes sful Closure Location (Fr) 1 (Fr) 2 (Fr) Remarks Device Remarks Femoral Right 5 Fr Exoseal artery Estimated blood loss: 5 ml Diagnostic catheters Device Type Used For End Catheter Placement MULTIPACK JL 4.0 5Fr Procedure catheter MULTIPACK 3DRC 5Fr Procedure catheter MULTIPACK Pigtail 5 Fr Procedure catheter Procedure Complications No complications Procedure Medications Medication Administration Route Dosage Oxygen etCO2 Nasal cannula 2 l/min Lidocaine 2% added to field 20 Heparin Flush Bag added to field 2 bags (1000units/500ml NS) 0.9% NaCl I.V. 100 ml/hr Versed I.V. 1 mg Fentanyl I.V. 50 mcg Versed I.V. 1 mg Hemodynamics Rest BSA: 1.84 (m2) HGB: 17.5 (g/dl) O2 Consumption: Estimated: 216.06 (ml/min) O2 Co nsumption indexed: Estimated:117.42 (ml/min/m) Heart Rate: 81 (bpm) Pressure Samples Time Site Value (mmHg) Purpose Heart Use Rate(bpm) 13:38 LV 137/16,17 Snapshot 74 13:38 AO 131/74(98) Pullback 84 13:38 LV 133/17,26 Pullback 84 Gradients Valve Time Site 1 Site 2 Mean SEP/DFP Peak To Heart Use (mmHg) (sec/min) Peak Rate (mmHg) (bpm) Aortic 13:38 LV AO 8 17 2 84 133/17,26 131/74(98) Calculations Valve P-P Mean Valve Index Valve Source Name Gradient Area Flow (cm2) Aortic 2 8 2 8 Snapshots Pre Cath Intra NCS Post Cath Vital Signs Time Heart Resp SPO2 etCO2 NIBP (mmHg) Rhythm Pain Sedation Rate (ipm) (%) (mmHg) Status Level (bpm) 13:17:32 85 22 96 0 158/86(119) NSR 0 (11) 10(A) , No pain 13:21:58 72 12 96 0 150/74(113) NSR 0 (11) 10(A) , No pain 13:26:16 75 12 94 0 128/68(105) NSR 0 (11) 10(A) , No pain 13:30:32 80 11 97 0 135/72(111) NSR 0 (11) 10(A) , No pain 13:34:51 74 11 95 0 140/74(113) NSR 0 (11) 9(A) , No pain 13:39:09 81 10 95 0 135/73(113) NSR 0 (11) 9(A) , No pain 13:43:23 94 10 97 0 151/91(117) NSR 0 (11) 10(A) , No pain Medications Time Medication Route Dose Verified Delivered Reason Notes Eff ectiveness by by 13:15:28 Oxygen etCO2 2 Imtiaz Sarbjit used for Nasal l/min [facility] Donnell Garcia RN procedure cannula 13:15:36 Lidocaine 2% added 20ml Imtiaz Imtiaz for local to vial [facility] anesthetic field MD WOO 13:15:41 Heparin Flush added 2 Imtiaz Imtiaz used for Bag to bags [facility] procedure (1000units/500ml field MD WOO NS) 13:15:52 0.9% NaCl I.V. 100 Imtiaz Schaffer Per ml/hr St Donnell Garcia RN physician 13:28:53 Versed I.V. 1 mg Imtiaz Schaffer for St Donnell Garcia RN sedation 13:28:59 Fentanyl I.V. 50 Imt[address] Buff[address] for mcg [address] Donnell Garcia RN sedation 13:32:06 Versed I.V. 1 mg Imtiaz Knutsonie for St Donnell Garcia RN sedation Procedure Log Time Note 12:54:57 Procedure Status Elective Heart Cath (OP). 12:54:59 Time tracking: Regular hours (M-F 7:00 - 5:00) 12:55:02 Plan of Care:Hemodynamics will remain stable., Cardiac rhythm will remain stable., Comfort level will be maintained., Respiratory function will remain adequate., Patient/ family verbilizes understanding of procedure., Procedure tolerated without complication., Recovers from procedure without complications.. 12:55:05 Chirag Tanner RT(R) sent for patient. Start room use. 12:55:07 Signed procedure consent form obtained from patient. 13:05:02 Patient Weight : 160.94 lbs 13:05:05 Patient Height : 66.93 inches 13:05:10 Arrival Date: 02/18/2019 12:00:00 AM 13:05:42 Lab Result : Hematocrit 49.3 % 13::42 Lab Result : eGFR NONAFRICAN 55 ml/min 13::42 Lab Result : Hemoglobin 17.5 g/dl 13::42 Lab Result : BUN 22 mg/dl 13::42 Lab Result : Creatinine 1.3 mg/dl 13:06:50 Patient allergic to Shellfish 13:10:43 Patient received from Pre/Post Procedure Room to CCL 1 Alert and oriented. Tansferred to table in Supine position. 13:10:45 Warm blankets applied, and criselda hugger turned on for patient comfort. 13:10:45 Correct patient and procedure confirmed by team. 13:10:45 ECG and BP/O2 sat monitors applied to patient. 13:15:17 Vital chart was started 13:15:28 Oxygen 2 l/min etCO2 Nasal cannula was administered by Sarbjit Garcia RN; used for procedure; 13:15:36 Lidocaine 2% 20ml vial added to field was administered by Imtiaz Martel MD; for local anesthetic; 13:15:41 Heparin Flush Bag (1000units/500ml NS) 2 bags added to field was administered by Imtiaz Martel MD; used for procedure; 13:15:52 0.9% NaCl 100 ml/hr I.V. was administered by Sarbjit Garcia RN; Per physician; 13:19:50 Rhythm: sinus rhythm 13:19:52 Baseline sample Acquired. 13:19:54 Full Disclosure recording started 13:20:03 H&P Date Dictated: 02/11/2019 Within 30 days and on chart., H&P Addendum completed by physician on day of procedure. (MUST COMPLETE FOR ALL OUTPATIENTS). 13:20:04 Pre-procedure instructions explained to patient. 13:20:04 Pre-op teaching completed and patient verbalized understanding. 13:20:06 Family in patients room. 13:20:07 Patient NPO since Midnight. 13:20:10 Is the patient allergic to Iodine/contrast media? Yes. 13:20:12 Was the patient premedicated? Yes 13:20:14 Is patient on blood thinner?No 13:20:15 Patient diabetic? No. 13:20:20 Previous problem with sedation/anesthesia? No ? 13:20:21 Snore? Yes 13:20:22 Sleep apnea? No 13:20:23 Deviated septum? No 13:20:23 Opens mouth fully? Yes 13:20:25 Sticks out tongue? Yes 13:20:27 Airway obstruction? No ? 13:20:28 Dentures? No ? 13:20:31 Pre procedure: right dorsailis pedis pulse 1+ Palpable, but thready & weak; easily obliterated 13:20:34 Patient pain scale 0/10 ?. 13:20:41 IV patent on arrival in left hand with 0.9% NaCl at [facility]. 13:20:44 Lab results completed and on chart. 13:20:47 Right groin area was prepped with chlora-prep and draped in sterile fashion 13:20:48 Alarms reviewed by R. N. 13:20:48 Sharps counted by scrub and verified by R.N. 13:24:42 Use device set Femoral Dx 13:24:43 ACIST Syringe (84500) opened to sterile field. 13:24:44 Bag Decanter (2002S) opened to sterile field. 13:24:45 ACIST Hand Control (14659) opened to sterile field. 13:24:46 ACIST Manifold (98048) opened to sterile field. 13:24:47 Tegaderm 4 x 4 (1626W) opened to sterile field. 13:24:48 Medline Cath Pack ([id number]) opened to sterile field. 13:24:49 DIAGNOSTIC Multipack 5Fr catheter set (RV0131) opened to sterile field. 13:24:50 SHEATH 5FR [place] (PQB929) opened to sterile field. 13:24:50 EMERALD Guide Wire (633-954) opened to sterile field. 13:27:14 --------ALL STOP TIME OUT------ 13:27:14 Final Timeout: patient, procedure, and site verified with staff and physician. All members of the team are in agreement. 13:27:15 Right groin site verified by team. 13:27:19 Fire Safety Assessment: A--An alcohol-based skin anteseptic being used preoperatively., C--Open oxygen or nitrous oxide is being used., D--An ESU, laser, or fiber-optic light is being used. 13:27:21 Physical assessment completed. ASA score P 2 - A patient with mild systemic disease as per Imtiaz Martel MD. 13:27:37 3a) 45-59 Moderately reduced kidney function. 13:27:55 Maximum allowable contrast dose (3.7 X eGFR X 0.75)153 ml. 13:27:58 Sedation plan: IV Moderate Sedation Medication:Versed, Fentanyl 13:28:25 Zero performed for pressure channel P1 13::53 Versed 1 mg I.V. was administered by Sarbjit Garcia RN; for sedation; 13::59 Fentanyl 50 mcg I.V. was administered by Sarbjit Garcia RN; for sedation; 13:31:49 Procedure started. 13:32:06 Versed 1 mg I.V. was administered by Sarbjit Garcia RN; for sedation; 13:32:31 Local anesthetic to right femoral artery with Lidocaine 2% by Imtiaz Martel MD.INITIAL ACCESS ONLY 13:33:06 A 5 Fr sheath was inserted into the Right Femoral artery 13:33:25 A MULTIPACK JL 4.0 5Fr catheter was advanced over the wire and used for Procedure. 13:34:57 LCA angiography performed. 13:35:24 Catheter removed. 13:35:36 A MULTIPACK 3DRC 5Fr catheter was advanced over the wire and used for Procedure. 13:36:43 RCA angiography performed. 13:36:44 Catheter removed. 13:36:56 ACCDominant side:Left 13:37:11 A MULTIPACK Pigtail 5 Fr catheter was advanced over the wire and used for Procedure. 13:38:02 LV gram done using BRAXTON 13:38:04 Injector settings: Ml/sec: 10, Volume: 20, 13:38:24 LV hemodynamics recorded. 13:38:39 EF : 55 % 13:38:44 Catheter removed. 13:38:46 EXOSEAL 5Fr (EX500) opened to sterile field. 13:39:24 Sheath removed intact; hemostasis achieved with Exoseal to the Right Femoral artery. 13:39:32 Procedure ended.(Physican Out) 13:40:23 Fluoroscopy time 01.40 minutes. 13:40:26 Fluoroscopy dose: 321 mGy 13:40:26 Flurop Dose total: 321 13:40:33 Dose Area Product 60208 mGy/cm. 13:40:37 Contrast amount:Isovue 300 65ml. 13:40:39 Maximum allowable dose exceeded? No. 13:40:41 Sharps counted by scrub and verified by R.N. 13:40:44 Post-op/insertion site Right Femoral artery dressed using a 4 x 4 and Tegaderm. 13:40:49 Post-procedure physical assessment completed. ASA score P 2 - A patient with mild systemic disease as per Imtiaz Martel MD. 13:41:23 Post procedure rhythm: unchanged. 13:41:25 Estimated blood loss: 5 ml 13:41:26 Post procedure instruction explained to patient.Patient verbalizes understanding. 13:41:26 Patient needs reinforcement of post procedure teaching. 13:41:46 Procedure and supply charges have been captured, reviewed, submitted and are correct. 13:41:49 Procedure Complication : No complications 13:42:58 Vital chart was stopped 13:42:59 See physician's report for complete and final results. 13:43:00 Report given to Pre/Post Procedure Room. 13:43:03 Patient transfered to Pre/Post Procedure Room with Bed. 13:43:05 Procedure ended. 13:43:05 Full Disclosure recording stopped 13:43:09 End room use (Document Last) 13:44:11 End room use (Document Last) 13:44:35 End room use (Document Last) Device Usage Item Name Manufacture Quantity Catalog Hospital Part Current Minimal L ot# / Number Charge Number Stock Stock Serial# Code ACIST Acist 1 32256 446708 492196 040542 20 Syringe Medical (00478) Systems Inc Bag Microtek 1 654134 50267 554830 5 Decanter Medical Inc. () ACIST Hand Acist 1 15437 789483 093877 301798 5 Control Medical (43027) Systems Inc ACIST Acist 1 80928 443373 774998 561525 5 Manifold Medical (25121) Systems Inc Tegaderm 4 3M 1 1626W 278949 006440 577978 5 x 4 (1626W) Medline Medline 1 [id number] 707761 19611 990614 5 Cath Pack ([id number]) DIAGNOSTIC Cardinal 1 QE6347 024201 13847 094663 30 Multipack Health 5Fr catheter set (MQ6582) SHEATH 5FR Terumo 1 JWL525 417487 654380 881957 5 [place] (NZE797) EMERALD Cardinal 1 502-455 698928 338357 900185 5 Guide Wire [facility] (502-520) MULTIPACK Cardinal 1 395119 5 JL 4.0 5Fr Health catheter MULTIPACK Cardinal 1 311843 5 3DRC 5Fr Health catheter MULTIPACK Cardinal 1 167540 5 Pigtail 5 Health Fr catheter EXOSEAL 5Fr Cardinal 1 EX500 364375 628546 538260 10 (EX500) Health Signature Audit Gwinner Stage Time Signature Unsigned Intra-Procedure 02/18/2019 Desire Payne 1:44:11 PM RT(R) Intra-Procedure 02/18/2019 Sarbjit Garcia RN 1:44:35 PM Intra-Procedure 02/18/2019 Imtiaz Rodriguez 1:48:45 PM Donnell WOO [place] [address] [place] [address]
[~2019-02-18 10:55] MED LIST changes: -BAYER CHEWABLE81 MG PO; -NITROQUICK0.4 MG SL; -PREDNISONE20 MG PO
[2019-02-18] MEDS ORDERED: NITROQUICK0.4 MG SL (11:13)
[2019-02-18] MEDS ORDERED: PREDNISONE20 MG PO (11:15)
[2019-02-18 11:26] VITALS: BP 127/68; Ht 170.2 cm; Wt 72.7 kg
[2019-02-18 11:32] LABS: BASOPHILS 0.1 % (0-2); EOSINOPHILS 0 % (0-7); HEMATOCRIT 49.3 % (42.0-54.0); HEMOGLOBIN 17.5 g/dL (13.5-17.5); IMMATURE GRANULOCYTES 0.3 % (0-5); LYMPHOCYTES 15.1 % (15-50); MCH 32.6 pg (26.0-34.0); MCHC 35.5 g/dL (31.0-37.0); MONOCYTES 1.7 % (2-11); NEUTROPHILS 82.8 % (40-80); PLATELET COUNT 193 10x3/uL (130-400); RBC 5.36 10x6/uL (4.20-6.10); RDW 12.9 % (11.5-14.5); WBC 14.5 10x3/uL (4.8-10.8)
[2019-02-18 11:52] LABS: ANION GAP 15.4 mmol/L (8-16); CALCIUM 9.3 mg/dL (8.5-10.1); CARBON DIOXIDE 26.3 mmol/L (21.0-32.0); CHOL - HDL RATIO 2.5 ratio (2.3-4.9); CREATININE - SERUM 1.3 mg/dL (0.6-1.3); LDL-HDL RATIO 1.3 ratio (1.5-3.5); POTASSIUM - SERUM 4.7 mmol/L (3.5-5.1)
[2019-02-18] MEDS ORDERED: BAYER CHEWABLE81 MG PO (12:00)
--- NOTE | 2019-02-18 14:02 | NUR ---
RECEIVED PT FROM FLARER. DRESSING IS CDI TO RIGHT GROIN, AREA IS SOFT. PEDAL PULSES PALPABLE. NSR, RATE IS 79, BP 152/96. SIDE RAILS UP X2, BED LOCKED AND LOW, CALL LIGHT IN REACH.
--- NOTE | 2019-02-18 14:15 | NUR ---
PT SLEEPING, RESP WITH EASE ON O2 AT 2LPM VIA NC. DRESSING IS CDI TO RIGHT GROIN, AREA IS SOFT WITH NO BLEEDING OR HEMATOMA NOTED. PEDAL PULSES PALPABLE. VSS. HOB IS FLAT, CALL LIGHT IN REACH. DR PERALTA HAS ROUNDED AND SPOKE WITH PT'S .
--- NOTE | 2019-02-18 14:28 | NUR ---
DRESSING CDI, VSS, HOB IS FLAT, PEDAL PULSES 2+.
--- NOTE | 2019-02-18 14:53 | NUR ---
PT ALERT, DENIES ANY C/O. DRESSING IS CDI TO RIGHT GROIN, AREA IS SOFT AND NONTENDER. PEDAL PULSES PALPABLE. FAMILY AT BEDSIDE, PT JUDSON SIPS OF APPLE JUICE WITH NO NAUSEA. HOB IS FLAT, CALL LIGHT IN REACH.
--- NOTE | 2019-02-18 15:07 | NUR ---
HOB ELEVATED 30 DEGREES, SANDWICH AND PO FLUIDS SERVED. DRESSING IS CDI TO RIGHT GROIN, VSS, FAMILY AT BEDSIDE. PT IS ALERT AND DENIES ANY C/O.
--- NOTE | 2019-02-18 15:38 | NUR ---
1525 HOB FULLY ELEVATED, DRESSING REMAINS CDI TO RIGHT GROIN, AREA IS SOFT AND NONTENDER. PEDAL PULSES PALPABLE. VSS. JUDSON SANDWICH WITH NO C/O NAUSEA.
--- NOTE | 2019-02-18 16:07 | NUR ---
1545 DC INSTRUCTIONS REVIEWED WITH PT AND SPOUSE WHO VERBALIZE UNDERSTANDING. DRESSING REMAINS CDI TO RIGHT GROIN, AREA IS SOFT AND NONTENDER. PEDAL PULSES PaLPABLE. IV DC'D WITH CATH INTACT AND PT IS DRESSING FOR DC WITH ASSIST FROM NURSE. 1600 PT HAS DRESSED FOR DC TO HOME. PT HAS VOIDED QS. DENIES ANY C/O. PT ESCORTED TO PRIVATE AUTO VIA WC BY NURSE WITH DAUGHTER DRIVING HIM HOME. PT HAS ALL PERSONAL BELONGINGS AND DC INSTRUCTIONS UPON DC TO HOME.
--- NOTE | 2019-02-19 13:08 | OP ---
PATIENT NAME: AMITA MICHELE MEDICAL RECORD: [id number] :32 LOCATION:D.[facility] ADMISSION DATE: SURGEON: ELHAM PERALTA MD DATE OF OPERATION: 02/18/2019 PROCEDURE: Left heart catheterization, selective coronary angiography, right femoral artery approach. CATHETERS: A 5-Ethiopian sheath, 5/4 left and right Alissa, 5/4 pig. The procedure was tolerated. The patient returned to the pandey. Sheath was removed. ExoSeal device placed. FINDINGS: Left ventriculography in 30-degree BRAXTON view: Normal wall motion. Normal systolic function. CORONARY ANATOMY: LEFT MAIN: Left main is free of disease. LAD: Free of disease in the diagonal system. CIRCUMFLEX: Free of disease in the marginal system. RIGHT CORONARY ARTERY: Dominant artery, gives rise to PDA, free of disease. IMPRESSION: Normal left ventricular systolic function, no evidence of restenosis. No progression of [place] disease. TRANSINT:[id number] Voice Confirmation ID: [id number] DOCUMENT ID: [id number] ELHAM PERALTA MD at 1308 CC: [id number] DICTATION DATE: 02/18/19 1352 REGIONAL BUSINESS DEVELOPMENT MANAGER: 02/18/19 2337 DEP CLI 02/18/19 [facility] [address] [place] [address]
== END 2019-02-18 16:00 | disposition home or self-care (01) ==
LOC: D.CATH 10:55 → D.CLR 11:00 → D.CATH 13:00
PROVIDERS: ATTEND Internal Medicine Interventional Cardiology
DX: I25.110 Atherosclerotic heart disease of native coronary artery with unstable angina pectoris (principal)

== ENCOUNTER → 2019-04-30 18:47 | Outpatient (CLI) | payer MEDICARE, BC ==
[2019-02-18 11:26] VITALS: BMI 25.1
[~2019-04-30 18:47] MED LIST changes: +BAYER CHEWABLE81 MG PO; +NITROQUICK0.4 MG SL; +PREDNISONE20 MG PO
[2019-04-30 19:24] LABS: CHOL - HDL RATIO 3.3 ratio (2.3-4.9); LDL-HDL RATIO 1.9 ratio (1.5-3.5)
== END | disposition home or self-care (01) ==
LOC: D.LABREF 18:47
PROVIDERS: ATTEND Internal Medicine Interventional Cardiology
DX: I25.10 Atherosclerotic heart disease of native coronary artery without angina pectoris (principal)

== ENCOUNTER → 2019-05-09 13:54 | Outpatient (CLI) | payer MEDICARE, BC ==
[2019-02-18 11:26] VITALS: BMI 25.1
== END | disposition home or self-care (01) ==
LOC: D.CT 13:54
PROVIDERS: ATTEND Internal Medicine Interventional Cardiology
DX: I70.211 Atherosclerosis of native arteries of extremities with intermittent claudication, right leg (principal)

== ENCOUNTER → 2019-07-18 16:42 | Outpatient (CLI) | payer MEDICARE, BC ==
[2019-02-18 11:26] VITALS: BMI 25.1
[2019-07-18 17:01] LABS: CHOL - HDL RATIO 3.4 ratio (2.3-4.9); LDL-HDL RATIO 1.9 ratio (1.5-3.5)
== END | disposition home or self-care (01) ==
LOC: D.LABREF 16:42
PROVIDERS: ATTEND Internal Medicine Interventional Cardiology
DX: E78.5 Hyperlipidemia, unspecified (principal)

== ENCOUNTER → 2019-07-22 13:44 | Outpatient (CLI) | payer MEDICARE, BC ==
[2019-02-18 11:26] VITALS: BMI 25.1
--- NOTE | 2019-07-24 13:11 | EC ---
PATIENT:AMITA MICHELE DATE OF SERVICE: 07/22/19 SEX: M MEDICAL RECORD: [id number] DATE OF : [birth year] LOCATION:D.[facility] AGE OF PATIENT: 89 ADMISSION DATE: 07/22/19 REFERRING PHYSICIAN: INTERPRETING PHYSICIAN: ELHAM PERALTA MD ECHOCARDIOGRAM REPORT ECHO CHARGES 4 ECHO COMPLETE Date: 07/22/19 CLINICAL DIAGNOSIS: CAD/ASSESS VALVES, HX DIZZINESS/AORTIC SCL. ECHOCARDIOGRAPHIC MEASUREMENTS (adult normal given) AC root (d.<3.7cm) 3.3 cm LV Septum d (<1.2 cm> 1.1 cm Valve Excursion 1.1 cm LV Septum (systole) 1.3 cm Left Atria (s.<4.0cm> 3.2 cm LVPW d(<1.2cm) 1.3 cm RV (d.<2.3cm) 2.7 cm LVPW (sytole) 1.4 cm LV diastole(<5.6CM) 4.0 cm MV E-F(>70mm/sec) cm LV systole 3.0 cm LVOT Diameter 1.7 cm MV exc.(>10mm) cm Est.ejection fraction (50-75%) % DOPPLER: LVIT cm/sec A 111.0cm/sec E 55.0 cm/sec LA cm/sec RVSP 15 mmHg LVOT 103 cm/sec AOP1/2T m/s Asc. Ao 125 cm/sec RVOT 112 cm/sec RA cm/sec PA 135 cm/sec AV Gradient Peak 6.24 mmHg AV Mean 3.57 mmHg AV Area 1.7 cm MV Gradient Peak 5.34 mmHg MV Mean 1.39 mmHg MV Area cm COMMENTS: Shut Off Worker: 2 SAMIRA SHELTON Hemmer Chainstitch: 3 Dr. Hoover TAPE# PACS Pericardial Effusion N DATE OF SERVICE: Adequate 2D, color flow imaging, spectral Doppler, and M-mode. No LVH. LV internal dimensions normal. Wall motion is normal. EF is greater than or equal to 55%. Aortic valve is sclerotic. There is no evidence of stenosis by Doppler interrogation. Left atrium is normal. Mitral valve shows no prolapse. Trace MR. Right-sided chambers grossly normal. Mild TR. TRANSINT:[id number] Voice Confirmation ID: [id number] DOCUMENT ID: [id number] ECHOCARDIOGRAM REPORT [id number] AMITA MICHELE,ELHAM Dewitt MD at 1311 CC: [id number] DICTATION DATE: 07/23/19 131 BILINGUAL RECRUITER: 07/23/192117 DEP CLI 07/22/19 [facility] [address] [place] [address]
== END | disposition home or self-care (01) ==
LOC: D.HCCECHO 13:44
PROVIDERS: ATTEND Internal Medicine Interventional Cardiology
DX: I25.10 Atherosclerotic heart disease of native coronary artery without angina pectoris (principal)

== ENCOUNTER → 2019-11-14 18:53 | Outpatient (CLI) | payer MEDICARE, BC ==
[2019-02-18 11:26] VITALS: BMI 25.1
[2019-11-14 19:57] LABS: CHOL - HDL RATIO 1.9 ratio (2.3-4.9); LDL-HDL RATIO 0.5 ratio (1.5-3.5)
== END | disposition home or self-care (01) ==
LOC: D.LABREF 18:53
PROVIDERS: ATTEND Internal Medicine Interventional Cardiology
DX: E78.5 Hyperlipidemia, unspecified (principal)